=== PATIENT | male | born 1965 | race Caucasian/White ===

== ENCOUNTER 2021-06-06 11:48 | Inpatient (IN) | payer BC ==
[2021-06-06] MEDS ORDERED: DEXAMETHASONE SOD PHOSPHATE 10 MG/ML 1 ML VIAL IV STA (13:41)
--- NOTE | 2021-06-06 14:07 | ED ---
SOB HPI - General Chief Complaint: Shortness of Breath Stated Complaint: COVID+, SOB Time Seen by Provider: 06/06/21 13:32 Source: patient Mode of arrival: wheelchair Limitations: no limitations - History of Present Illness Initial Comments: Patient is a 56-year-old male presenting to the emergency Department with complaints of increasing shortness of breath over the past week. Patient tested positive for covid 9 days ago. He states last week his symptoms were minimal, occasional body aches, then this week his cough developed and he has been progr essively getting more short of breath. He denies history of asthma or COPD, he takes no medications. He is a nonsmoker. He did not receive the Covid vaccine. He states he had one day of a fever about 3 days ago, none since then. He denies any GI complaints such as nausea, vomiting, diarrhea. Denies any abdominal pain, no chest pain today just occasional tightness when he feels like coughing. He has no further complaints today. Upon arrival to the ER, is afebrile, tachycardia at 112, blood pressures 136/85, 82% on room air. - Related Data Home Medications Medication Instructions Recorded Confirmed Albuterol Inhaler [Ventolin Hfa 2 puff INHALATION RT-QID PRN 06/06/21 06/06/21 Inhaler] Albuterol Nebulized [Ventolin 2.5 mg INHALATION RT-TID PRN 06/06/21 06/06/21 Nebulized] Azithromycin [Zithromax Z-pack (6 See Taper PO DAILY 06/06/21 06/06/21 tabs)] predniSONE See Taper PO DAILY 06/06/21 06/06/21 Allergies Allergy/AdvReac Type Severity Reaction Status Date / Time No Known Allergies Allergy Verified 06/06/21 15:09 Review of Systems ROS Statement: Those systems with pertinent positive or pertinent negative responses have been documented in the HPI. ROS Other: All systems not noted in ROS Statement are negative. Past Medical History Additional Past Medical History / Comment(s): Covid 05/28 History of Any Multi-Drug Resistant Organisms: None Reported Past Surgical History: No Surgical Hx Reported Past Psychological History: No Psychological Hx Reported Smoking Status: Never smoker Past Alcohol Use History: Occasional Past Drug Use History: None Reported General Exam - General Exam Comments Initial Comments: GENERAL: Patient is well-developed and well-nourished. Patient is in moderate distress. HEAD: Atraumatic, normocephalic. EYES: Pupils equal round and reactive to light, extraocular movements intact, sclera anicteric, conjunctiva are normal. Eyelids were unremarkable. ENT: TMs normal, nares patent, oropharynx clear without exudates. Moist mucous membranes. NECK: Normal range of motion, supple without lymphadenopathy or JVD. LUNGS: Labored respirations, unable to finish a complete sentence without needing to breathe. Decreased sounds bilaterally, clear to auscultation bilaterally and equal. No wheezes rales or rhonchi. HEART: Tachycardia rate and rhythm without murmurs, rubs or gallops. ABDOMEN: Soft, nontender, normoactive bowel sounds. No guarding, no rebound. No masses appreciated. : Deferred MUSCULOSKELETAL: Normal extremities with adequate strength and normal range of motion, no pitting or edema. No clubbing or cyanosis. NEUROLOGICAL: Patient is alert and oriented x 3. Motor and sensory are also intact. Cranial nerves II through XII grossly intact. Symmetrical smile. Normal speech, normal gait. PSYCH: Normal mood, normal affect. SKIN: Warm, Dry, normal turgor, no rashes or lesions noted. Limitations: no limitations Course Vital Signs 06/06/21 06/06/21 12:15 14:55 Temperature 98.1 F 98.9 F Pulse Rate 112 H 98 Respiratory 24 24 Rate Blood Pressure 136/85 136/92 O2 Sat by Pulse 82 L 87 L Oximetry Medical Decision Making - Medical Decision Making Patient is a 56-year-old healthy male presenting for increased shortness of breath over the past week. He tested positive for COVID-19 days ago, his symptoms started 2 days prior. He has not received the Covid vaccine. He takes no medications. He arrived at 82% on room air. On exam, patient is very labored breathing, cannot complete a full sentence without deep breath. His labs show a normal white count, LDH, CRP and mildly elevated liver enzymes, all consistent with Covid infection. Chest x-ray shows multifocal patchy areas of bilateral infiltrate. He was placed on 5 L of nasal cannula, has been resting comfortably at about 87%. Patient will be admitted for Covid pneumonia, hypoxia. Patient except by Dr. Francis, with ID and pulmonary on consult. Patient is agreeable to this. Patient discussed with Dr. Spears. - Lab Data Result diagrams: 06/06/21 14:09 06/06/21 14:09 Lab Results 06/06/21 06/06/21 06/06/21 Range/Units 14:09 14:09 14:09 WBC 9.0 (3.8-10.6) k/uL RBC 4.66 (4.30-5.90) m/uL Hgb 15.2 (13.0-17.5) gm/dL Hct 44.0 (39.0-53.0) % MCV 94.4 (80.0-100.0) fL MCH 32.6 (25.0-35.0) pg MCHC 34.5 (31.0-37.0) g/dL RDW 12.6 (11.5-15.5) % Plt Count 232 (150-450) k/uL MPV 8.4 Neutrophils % 84 % Lymphocytes % 9 % Monocytes % 2 % Eosinophils % 0 % Basophils % 1 % Neutrophils # 7.6 (1.3-7.7) k/uL Lymphocytes # 0.8 L (1.0-4.8) k/uL Monocytes # 0.2 (0-1.0) k/uL Eosinophils # 0.0 (0-0.7) k/uL Basophils # 0.1 (0-0.2) k/uL PT 10.4 (9.0-12.0) sec INR 1.0 (<1.2) APTT 20.6 L (22.0-30.0) sec Sodium 141 (137-145) mmol/L Potassium 4.2 (3.5-5.1) mmol/L Chloride 108 H (98-107) mmol/L Carbon Dioxide 27 (22-30) mmol/L Anion Gap 6 mmol/L BUN 23 H (9-20) mg/dL Creatinine 0.66 (0.66-1.25) mg/dL Est GFR (CKD-EPI)AfAm >90 (>60 ml/min/1.73 sqM) Est GFR (CKD-EPI)NonAf >90 (>60 ml/min/1.73 sqM) Glucose 123 H (74-99) mg/dL Plasma Lactic Acid James (0.7-2.0) mmol/L Calcium 8.8 (8.4-10.2) mg/dL Magnesium 2.4 H (1.6-2.3) mg/dL Total Bilirubin 0.6 (0.2-1.3) mg/dL AST 110 H (17-59) U/L ALT 66 H (4-49) U/L Alkaline Phosphatase 66 (38-126) U/L Lactate Dehydrogenase 2094 H (313-618) U/L Troponin I (0.000-0.034) ng/mL C-Reactive Protein 15.7 H (<1.0) mg/dL NT-Pro-B Natriuret Pep pg/mL Total Protein 6.8 (6.3-8.2) g/dL Albumin 3.6 (3.5-5.0) g/dL 06/06/21 06/06/21 06/06/21 Range/Units 14:09 14:09 14:09 WBC (3.8-10.6) k/uL RBC (4.30-5.90) m/uL Hgb (13.0-17.5) gm/dL Hct (39.0-53.0) % MCV (80.0-100.0) fL MCH (25.0-35.0) pg MCHC (31.0-37.0) g/dL RDW (11.5-15.5) % Plt Count (150-450) k/uL MPV Neutrophils % % Lymphocytes % % Monocytes % % Eosinophils % % Basophils % % Neutrophils # (1.3-7.7) k/uL Lymphocytes # (1.0-4.8) k/uL Monocytes # (0-1.0) k/uL Eosinophils # (0-0.7) k/uL Basophils # (0-0.2) k/uL PT (9.0-12.0) sec INR (<1.2) APTT (22.0-30.0) sec Sodium (137-145) mmol/L Potassium (3.5-5.1) mmol/L Chloride (98-107) mmol/L Carbon Dioxide (22-30) mmol/L Anion Gap mmol/L BUN (9-20) mg/dL Creatinine (0.66-1.25) mg/dL Est GFR (CKD-EPI)AfAm (>60 ml/min/1.73 sqM) Est GFR (CKD-EPI)NonAf (>60 ml/min/1.73 sqM) Glucose (74-99) mg/dL Plasma Lactic Acid James 1.3 (0.7-2.0) mmol/L Calcium (8.4-10.2) mg/dL Magnesium (1.6-2.3) mg/dL Total Bilirubin (0.2-1.3) mg/dL AST (17-59) U/L ALT (4-49) U/L Alkaline Phosphatase (38-126) U/L Lactate Dehydrogenase (313-618) U/L Troponin I <0.012 (0.000-0.034) ng/mL C-Reactive Protein (<1.0) mg/dL NT-Pro-B Natriuret Pep 38 pg/mL Total Protein (6.3-8.2) g/dL Albumin (3.5-5.0) g/dL - EKG Data EKG Comments: Normal sinus rhythm, minimal voltage criteria for LVH, nonspecific T-wave abnormalities, no signs of acute ST segment elevation. Ventricular rate 98, MD interval 156, QT 338. Critical Care Time Critical Care Time: Yes Total Critical Care Time: 35 (Patient arrived to the ER at 82% on room air, and during questioning the patient, gaining history, he dropped to 77% on room air. Patient is positive for Covid, will be admitted for Covid pneumonia, hypoxia.) Disposition Clinical Impression: Pneumonia due to COVID-19 virus, Hypoxia Disposition: ADMITTED IP TO THIS HOSP Condition: Fair Decision Date: 06/06/21 Decision Time: 14:39
[2021-06-06 14:21] LABS: Basophils # (A) 0.1 k/uL (0-0.2); Basophils % (A) 1 %; Eosinophils % (A) 0 %; HGB 15.2 gm/dL (13.0-17.5); Lymphocytes # (A) 0.8 k/uL (1.0-4.8); Lymphocytes % (A) 9 %; MCH 32.6 pg (25.0-35.0); MCHC 34.5 g/dL (31.0-37.0); MCV 94.4 fL (80.0-100.0); Mean Platelet Volume 8.4; Monocytes # (A) 0.2 k/uL (0-1.0); Monocytes % (A) 2 %; Neutrophils # (A) 7.6 k/uL (1.3-7.7); Neutrophils % (A) 84 %; Platelet Count 232 k/uL (150-450); RBC 4.66 m/uL (4.30-5.90); RDW 12.6 % (11.5-15.5)
[2021-06-06 14:34] LABS: ALT 66 U/L (4-49); AST 110 U/L (17-59); African American GFR (CKD) >90 (>60 ml/min/1.73 sqM); Albumin 3.6 g/dL (3.5-5.0); Alkaline Phosphatase 66 U/L (38-126); Anion Gap 6 mmol/L; Blood Urea Nitrogen 23 mg/dL (9-20); Calcium 8.8 mg/dL (8.4-10.2); Carbon Dioxide 27 mmol/L (22-30); Chloride 108 mmol/L (98-107); Glucose 123 mg/dL (74-99); Magnesium 2.4 mg/dL (1.6-2.3); Non-African American GFR(CKD) >90 (>60 ml/min/1.73 sqM); Potassium 4.2 mmol/L (3.5-5.1); Sodium 141 mmol/L (137-145); Total Bilirubin 0.6 mg/dL (0.2-1.3); Total Protein 6.8 g/dL (6.3-8.2)
[2021-06-06] MEDS ORDERED: NALOXONE 0.4 MG/ML 1 ML VIAL IV PRN (14:36)
[2021-06-06] MEDS ORDERED: ACETAMINOPHEN TAB 325 MG TAB PO PRN (14:36)
[2021-06-06] MEDS ORDERED: IBUPROFEN 400 MG TAB PO PRN (14:36)
--- NOTE | 2021-06-06 14:38 | XR ---
EXAMINATION TYPE: XR chest 1V portable DATE OF EXAM: 06/06/2021 COMPARISON: NONE HISTORY: Shortness of breath TECHNIQUE: Single frontal view of the chest is obtained. FINDINGS: There are patchy bilateral areas of infiltrate correlate for pneumonia. Heart size is mild ly prominent. No pneumothorax. Tiny pleural effusions not excluded. IMPRESSION: Multifocal patchy areas of bilateral infiltrate correlate for pneumonia.
[2021-06-06 14:44] LABS: Prothrombin Time 10.4 sec (9.0-12.0)
[2021-06-06 14:45] LABS: Partial Thromboplastin Time 20.6 sec (22.0-30.0)
[2021-06-06 15:16] LABS: C Reactive Protein 15.7 mg/dL (<1.0); LDH 2094 U/L (313-618)
[2021-06-06 16:51] LABS: Glucose,Whole Blood 132 mg/dL (75-99)
--- NOTE | 2021-06-06 18:47 | P.CNPUL ---
History of Present Illness Consult date: 06/06/21 Reason for consult: dyspnea, hypoxemia, pneumonia, abnormal CXR/CT Chief complaint: COVID-19 pneumonia History of present illness: This is a 54-year-old white male patient of Dr. Hallman, who came into the emergency department on 06/06/2021 for evaluation of increasing shortness of breath. She apparently tested positive for COVID-19 9 days ago. His dyspnea has been progressive over the past week. Initially his symptoms were minimal with occasional body aches, then this week his cough developed, and he has been progressively getting more short of breath. He does not have any history of chronic lung disease. He takes no prescription medications, he is a non-smoker, patient has not received COVID-19 vaccine. Patient reports 1 day of fever 3 days ago, and has not had any recurrence since. No nausea vomiting or diarrhea, no abdominal pain. His pulse ox in the emergency department was low at 82% on room air, he is afebrile, slightly tachycardic. His blood pressure is stable at 136/85. Chest x-ray showed multifocal patchy areas of bilateral infiltrates. Lab findings showed white blood cell count of 9.0, hemoglobin of 15.2, platelet count is 232, INR is 1.0, sodium is 141, potassium is 4.2, chloride is 108, CO2 is 27, B1 is 23, creatinine 0.66, lactic acid was 1.3, AST was 110, ALT was 66, LDH was 2094, troponin was less than 0.012, CRP was 15.7. Patient was placed on 8 L of supplemental oxygen, his pulse ox is 88%. He was placed on IV Decadron 6 mg daily, and we were consulted for acute hypoxic rest or a failure related to COVID-19 pneumonia Review of Systems All systems: negative Constitutional: Reports fatigue, Reports weakness, Denies chills, Denies fever Eyes: denies blurred vision, denies pain Ears, nose, mouth and throat: Denies headache, Denies sore throat Cardiovascular: Denies chest pain, Denies shortness of breath Respiratory: Reports dyspnea, Denies cough Gastrointestinal: Denies abdominal pain, Denies diarrhea, Denies nausea, Denies vomiting Musculoskeletal: Denies myalgias Integumentary: Denies pruritus, Denies rash Neurological: Denies numbness, Denies weakness Psychiatric: Denies anxiety, Denies depression Endocrine: Denies fatigue, Denies weight change Past Medical History Additional Past Medical History / Comment(s): Covid 05/28 History of Any Multi-Drug Resistant Organisms: None Reported Past Surgical History: No Surgical Hx Reported Past Psychological History: No Psychological Hx Reported Smoking Status: Never smoker Past Alcohol Use History: Occasional Past Drug Use History: None Reported Medications and Allergies Home Medications Medication Instructions Recorded Confirmed Type Albuterol Inhaler [Ventolin Hfa 2 puff INHALATION RT-QID PRN 06/06/21 06/06/21 History Inhaler] Albuterol Nebulized [Ventolin 2.5 mg INHALATION RT-TID PRN 06/06/21 06/06/21 History Nebulized] Azithromycin [Zithromax Z-pack (6 See Taper PO DAILY 06/06/21 06/06/21 History tabs)] predniSONE See Taper PO DAILY 06/06/21 06/06/21 History Allergies Allergy/AdvReac Type Severity Reaction Status Date / Time No Known Allergies Allergy Verified 06/06/21 15:09 Physical Exam Vitals: Vital Signs Temp Pulse Pulse Resp BP BP Pulse Ox 06/06/21 17:13 105 H 06/06/21 17:10 98.9 F 105 H 144/84 06/06/21 16:25 91 20 133/88 86 L 06/06/21 16:00 28 H 88 L 06/06/21 14:55 98.9 F 98 24 136/92 87 L 06/06/21 13:40 24 06/06/21 12:15 98.1 F 112 H 24 136/85 82 L Intake and Output 06/06/21 06/06/21 06/06/21 06:59 14:59 22:59 Other: Voiding Method Toilet Weight 136.078 kg GENERAL EXAM: Alert, 56-year-old white male, on 8 L of oxygen and the pulse ox of 80%, resting in the hallway in the emergency department, comfortable in no apparent distress. HEAD: Normocephalic/atraumatic. EYES: Normal reaction of pupils, equal size. Conjunctiva pink, sclera white. NOSE: Clear with pink turbinates. THROAT: No erythema or exudates. NECK: No masses, no JVD, no thyroid enlargement, no adenopathy. CHEST: No chest wall deformity. Symmetrical expansion. LUNGS: Equal air entry with scattered crackles CVS: Regular rate and rhythm, normal S1 and S2, no gallops, no murmurs, no rubs ABDOMEN: Soft, nontender. No hepatosplenomegaly, normal bowel sounds, no guarding or rigidity. EXTREMITIES: No clubbing, no edema, no cyanosis, 2+ pulses and upper and lower extremities. MUSCULOSKELETAL: Muscle strength and tone normal. SPINE: No scoliosis or deformity SKIN: No rashes CENTRAL NERVOUS SYSTEM: Alert and oriented -3. No focal deficits, tone is normal in all 4 extremities. PSYCHIATRIC: Alert and oriented -3. Appropriate affect. Intact judgment and insight. Results - Laboratory Findings CBC and BMP: 06/06/21 14:09 06/06/21 14:09 PT/INR, D-dimer PT 10.4 sec (9.0-12.0) 06/06/21 14:09 INR 1.0 (<1.2) 06/06/21 14:09 Abnormal lab findings: Abnormal Labs 06/06/21 06/06/21 06/06/21 14:09 14:09 14:09 Lymphocytes # 0.8 L APTT 20.6 L Chloride 108 H BUN 23 H Glucose 123 H POC Glucose (mg/dL) Magnesium 2.4 H AST 110 H ALT 66 H Lactate Dehydrogenase 2094 H C-Reactive Protein 15.7 H 06/06/21 16:50 Lymphocytes # APTT Chloride BUN Glucose POC Glucose (mg/dL) 132 H Magnesium AST ALT Lactate Dehydrogenase C-Reactive Protein - Diagnostic Findings Chest x-ray: report reviewed, image reviewed Additional studies: EKG was reviewed Assessment and Plan Plan: Assessment: #1. Acute hypoxic respiratory failure related to acute COVID-19 pneumonia, tested +9 days prior to presentation, patient is outside of the window for Remdesivir treatment. Non-vaccinated for COVID-19 #2. Never smoker #3. Increase fluid is related to viral pneumonia Plan: Continue Decadron 6 mg daily Outside of the window for Remdesivir Lovenox 40 mg daily Will add vitamins Obtain follow-up inflammatory markers and d-dimer We'll continue to follow and monitor for worsening dyspnea and hypoxia I performed a history & physical examination of the patient and discussed their management with my nurse practitioner, Sherry Jimenez. I reviewed the nurse practitioner's note and agree with the documented findings and plan of care. Lung sounds are positive for diffuse crackles throughout the lung smart. The findings and the impression was discussed with the patient. I attest to the documentation by the nurse practitioner. Time with Patient: Greater than 30
[2021-06-06] MEDS: ENOXAPARIN 40 MG/0.4 ML SYRINGE SQ SCH (18:51)
[2021-06-06 20:33] LABS: Glucose,Whole Blood 128 mg/dL (75-99)
[2021-06-06] MEDS: ASCORBIC ACID 500 MG TAB PO SCH (20:55)
[2021-06-06] MEDS: CHOLECALCIFEROL 25 MCG (1000 IU) TABLET PO SCH (20:55)
--- NOTE | 2021-06-06 21:28 | P.CONS ---
History of Present Illness - Reason for Consult Consult date: 06/06/21 covid 19 pneumonia Requesting physician: Yanick Francis - Chief Complaint shortness of breath and cough x days - History of Present Illness History of present illness : Patient is a 56-year male presenting to the ER this morning for evaluation of increasing shortness of breath in this patient who tested positive for COVID-19 on 05/27/2021 initially the patient sy mptoms were mild and mostly URI patient has been treated with the inhaler followed by steroids however the patient started having a increasing shortness of breath that has been progressively getting worse the patient also started having a cough which has been moderate intensity mostly dry in nature patient did have some nausea but no vomiting did have some diarrhea initially with the symptoms the patient presented to the [facility] ER on arrival to the ER patient was afebrile patient was hypoxic with O2 sats of 82% on room air patient did have a normal white count with lymphopenia D-dimer was elevated 1.12 kidney function was normal liver enzymes are elevated CRP is 15.7 albumin was normal patient did have a chest x-ray multifocal patchy areas of bilateral infiltrate correlate for pneumonia patient was admitted to the hospital infectious disease was consulted for further management Review of system: CONSTITUTIONAL: Positive for weakness denies high-grade fever. EYES: No complaint. ENT: No complaint. RESPIRATORY: As per history of present illness. CARDIOVASCULAR: No complaint. GENITOURINARY: No complaint. GASTROINTESTINAL: No complaint. MUSCULOSKELETAL: No complaint. INTEGUMENTARY: No complaint. PSYCHOLOGIC: No complaint. ENDOCRINE: No complaint. NEUROLOGIC: No complaint. Past medical history : Reviewed, documented below Past surgical history : Reviewed, documented below Social history: Reviewed, documented below Medications: Reviewed, as documented below EXAMINATION: Vital sigans= Reviewed and documented below GENERAL DESCRIPTION: Middle-aged male lying in bed, no distress. No tachypnea or accessory muscle of respiration use. HEENT: Shows Pallor , no scleral icterus. Oral mucous membrane is dry. NECK: Trachea central, no thyromegaly. LUNGS: Unlabored breathing. Coarse breath sounds bilaterally. No wheeze or crackle. HEART: S1, S2, regular rate and rhythm. ABDOMEN: Soft, no tenderness , guarding or rigidity EXTREMITIES: No edema of feet. SKIN: No rash, no masses palpable. NEUROLOGICAL: The patient is awake, alert, oriented x3, mood and affect normal. LABS AND RADIOLOGY: Reviewed results see below Assessment : Patient is a 56-year male presented to hospital with increasing shortness of breath and cough and this patient has been diagnosed with a COVID-19 on 05/27/2021, patient is currently out of the therapeutic window for remdesivir per [facility] institutional policy and the treatment will be mostly supportive in this patient currently with the no evidence of any secondary bacterial pneumonia Plan: 1-patient has been started on dexamethasone Lovenox and ascorbic acid 2-we will add zinc 3-droplet isolation and respiratory support 4-no need for systemic antibiotic therapy We will follow on clinical condition and cultures to further adjust medication if needed Thank you for this consultation we will follow the patient along with you Past Medical History Past Medical History: Cancer Additional Past Medical History / Comment(s): Covid 05/28 History of Any Multi-Drug Resistant Organisms: None Reported Past Surgical History: No Surgical Hx Reported Additional Past Surgical History / Comment(s): Skin Cancer Past Anesthesia/Blood Transfusion Reactions: No Reported Reaction Past Psychological History: No Psychological Hx Reported Smoking Status: Never smoker Past Alcohol Use History: Occasional Past Drug Use History: None Reported - Past Family History Father History Unknown: Yes Family Medical History: Myocardial Infarction (ID) Medications and Allergies Home Medications Medication Instructions Recorded Confirmed Type Albuterol Inhaler [Ventolin Hfa 2 puff INHALATION RT-QID PRN 06/06/21 06/06/21 History Inhaler] Albuterol Nebulized [Ventolin 2.5 mg INHALATION RT-TID PRN 06/06/21 06/06/21 History Nebulized] Azithromycin [Zithromax Z-pack (6 See Taper PO DAILY 06/06/21 06/06/21 History tabs)] predniSONE See Taper PO DAILY 06/06/21 06/06/21 History Allergies Allergy/AdvReac Type Severity Reaction Status Date / Time No Known Allergies Allergy Verified 06/06/21 15:09 Physical Exam Vitals: Vital Signs Temp Pulse Pulse Resp BP BP Pulse Ox 06/06/21 20:00 98.2 F 101 H 26 H 155/91 88 L 06/06/21 17:13 105 H 06/06/21 17:10 98.9 F 105 H 144/84 06/06/21 16:25 91 20 133/88 86 L 06/06/21 16:00 28 H 88 L 06/06/21 14:55 98.9 F 98 24 136/92 87 L 06/06/21 13:40 24 06/06/21 12:15 98.1 F 112 H 24 136/85 82 L Intake and Output 06/06/21 06/06/21 06/06/21 06:59 14:59 22:59 Intake Total 130 Balance 130 Intake: IV 10 Invasive Line 1 10 Oral 120 Other: Voiding Method Toilet Weight 136.078 kg 136.078 kg Results CBC & Chem 7: 06/06/21 14:09 06/06/21 14:09 Labs: Abnormal Lab Results - Last 24 Hours (Table) 06/06/21 06/06/21 06/06/21 Range/Units 14:09 14:09 14:09 Lymphocytes # 0.8 L (1.0-4.8) k/uL APTT 20.6 L (22.0-30.0) sec D-Dimer (<0.60) mg/L FEU Chloride 108 H (98-107) mmol/L BUN 23 H (9-20) mg/dL Glucose 123 H (74-99) mg/dL POC Glucose (mg/dL) (75-99) mg/dL Magnesium 2.4 H (1.6-2.3) mg/dL AST 110 H (17-59) U/L ALT 66 H (4-49) U/L Lactate Dehydrogenase 2094 H (313-618) U/L C-Reactive Protein 15.7 H (<1.0) mg/dL 06/06/21 06/06/21 06/06/21 Range/Units 16:50 19:51 20:32 Lymphocytes # (1.0-4.8) k/uL APTT (22.0-30.0) sec D-Dimer 1.12 H (<0.60) mg/L FEU Chloride (98-107) mmol/L BUN (9-20) mg/dL Glucose (74-99) mg/dL POC Glucose (mg/dL) 132 H 128 H (75-99) mg/dL Magnesium (1.6-2.3) mg/dL AST (17-59) U/L ALT (4-49) U/L Lactate Dehydrogenase (313-618) U/L C-Reactive Protein (<1.0) mg/dL
--- NOTE | 2021-06-06 23:08 | P.HPIM ---
History of Present Illness H&P Date: 06/06/21 Chief Complaint: Shortness of breath History of presenting complaint: This is a pleasant 56-year-old patient who follows with Dr. Hallman. Normal. Good health. Patient's thyroid of not feeling well about 9 days ago. And tested positive for COVID 19. Patient has not taken his COVID-19 vaccination. Initially symptoms are nonspecific then progressed to develop cough shortness of breath. Patient has been maintained his taste and smell. No diarrhea. Very slight body ache. No headache. Decreasing appetite. Patient became more and more short of breath. Decided to come to the ER. Found of a pulse ox of 82%. Admitted. Review of systems: GEN.: Tired EYES: None HEENT: None NECK: None RESPIRATORY: As above CARDIOVASCULAR: None GASTROINTESTINAL: None GENITOURINARY: None MUSCULOSKELETAL: None LYMPHATICS: None HEMATOLOGICAL: None PSYCHIATRY: None NEUROLOGICAL: None Past medical history to include: Unremarkable Social history: . 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 Does not smoke. Alcohol occasionally. Family history: Myocardial infarction Physical examination: VITAL SIGNS: 98.1, 112, 24, 136/85, 82% on room air on presentation GENERAL: BMI 37.5, reclining in bed, tired, short of breath. EYES: Pupils equal. Conjunctiva normal. HEENT: External appearance of nose and ears normal, oral cavity grossly normal. NECK: JVD not raised; masses not palpable. HEART: First and second heart sounds are normal; no edema. LUNGS: Respiratory rate increased, basal crackles. ABDOMEN: Soft, nontender, liver spleen not palpable, no masses palpable. PSYCH: [Alert and oriented x3; mood and affect tired. NEUROLOGICAL: Cranial nerves grossly intact; no facial asymmetry, power and sensation grossly intact. LYMPHATICS: No lymph nodes palpable in the axilla and neck INVESTIGATIONS, reviewed in the clinical context: WBC 9 hemoglobin 15.2 platelets 232 d-dimer 1.12 potassium 4.2 sodium 141 BUN 23 creatinine 0.66 AST 110 ALT 66 LDH 2094 CRP 15.7 Chest x-ray film personally reviewed by me-bilateral infiltrates EKG tracing personally reviewed by me-normal sinus rhythm, nonspecific T-wave changes Assessment and plan: -Acute COVID 19 pneumonitis, in unvaccinated patient Dexamethasone 6 mg daily, subcu Lovenox, vitamin C vitamin D zinc. Per [facility] policy patient is out of the window for Remdesivir. Consultation to pulmonary and ID. -Acute hypoxic respiratory failure from COVID 19 pneumonitis. On 5 L of nasal cannula -Obesity BMI 37.15 Weight loss measures -Mildly elevated LFTs. Check liver ultrasound for hepatic steatosis Dexamethasone 6 mg, subcu Lovenox, 5 L of oxygen,. Patient instructed on incentive spirometry. Care was discussed with the patient. Questions answered. Given the complexity and severity of patient's condition expect the patient to be in the hospital at least for 2 overnights Past Medical History Past Medical History: Cancer Additional Past Medical History / Comment(s): Covid 05/28 History of Any Multi-Drug Resistant Organisms: None Reported Past Surgical History: No Surgical Hx Reported Additional Past Surgical History / Comment(s): Skin Cancer Past Anesthesia/Blood Transfusion Reactions: No Reported Reaction Past Psychological History: No Psychological Hx Reported Smoking Status: Never smoker Past Alcohol Use History: Occasional Past Drug Use History: None Reported - Past Family History Father History Unknown: Yes Family Medical History: Myocardial Infarction (ND) Medications and Allergies Home Medications Medication Instructions Recorded Confirmed Type Albuterol Inhaler [Ventolin Hfa 2 puff INHALATION RT-QID PRN 06/06/21 06/06/21 History Inhaler] Albuterol Nebulized [Ventolin 2.5 mg INHALATION RT-TID PRN 06/06/21 06/06/21 History Nebulized] Azithromycin [Zithromax Z-pack (6 See Taper PO DAILY 06/06/21 06/06/21 History tabs)] predniSONE See Taper PO DAILY 06/06/21 06/06/21 History Allergies Allergy/AdvReac Type Severity Reaction Status Date / Time No Known Allergies Allergy Verified 06/06/21 15:09 Physical Exam Vitals: Vital Signs Temp Pulse Pulse Resp BP BP Pulse Ox 06/06/21 22:39 90 L 06/06/21 20:00 98.2 F 101 H 26 H 155/91 88 L 06/06/21 17:13 105 H 06/06/21 17:10 98.9 F 105 H 144/84 06/06/21 16:25 91 20 133/88 86 L 06/06/21 16:00 28 H 88 L 06/06/21 14:55 98.9 F 98 24 136/92 87 L 06/06/21 13:40 24 06/06/21 12:15 98.1 F 112 H 24 136/85 82 L Intake and Output 06/06/21 06/06/21 06/06/21 06:59 14:59 22:59 Intake Total 130 Balance 130 Intake: IV 10 Invasive Line 1 10 Oral 120 Other: Voiding Method Toilet Weight 136.078 kg 136.078 kg Results CBC & Chem 7: 06/06/21 14:09 06/06/21 14:09 Labs: Abnormal Lab Results - Last 24 Hours (Table) 06/06/21 06/06/21 06/06/21 Range/Units 14:09 14:09 14:09 Lymphocytes # 0.8 L (1.0-4.8) k/uL APTT 20.6 L (22.0-30.0) sec D-Dimer (<0.60) mg/L FEU Chloride 108 H (98-107) mmol/L BUN 23 H (9-20) mg/dL Glucose 123 H (74-99) mg/dL POC Glucose (mg/dL) (75-99) mg/dL Magnesium 2.4 H (1.6-2.3) mg/dL AST 110 H (17-59) U/L ALT 66 H (4-49) U/L Lactate Dehydrogenase 2094 H (313-618) U/L C-Reactive Protein 15.7 H (<1.0) mg/dL 06/06/21 06/06/21 06/06/21 Range/Units 16:50 19:51 20:32 Lymphocytes # (1.0-4.8) k/uL APTT (22.0-30.0) sec D-Dimer 1.12 H (<0.60) mg/L FEU Chloride (98-107) mmol/L BUN (9-20) mg/dL Glucose (74-99) mg/dL POC Glucose (mg/dL) 132 H 128 H (75-99) mg/dL Magnesium (1.6-2.3) mg/dL AST (17-59) U/L ALT (4-49) U/L Lactate Dehydrogenase (313-618) U/L C-Reactive Protein (<1.0) mg/dL Thrombosis Risk Factor Assmnt - Choose All That Apply Any of the Below Risk Factors Present?: Yes Each Factor Represents 1 point: Age 41-60 years, Obesity (BMI >25), Serious lung disease incl. pneumonia (< 1month) Other Risk Factors: No Thrombosis Risk Factor Assessment Total Risk Factor Score: 3 Thrombosis Risk Factor Assessment Level: Moderate Risk
[2021-06-07 06:31] LABS: Glucose,Whole Blood 111 mg/dL (75-99)
[2021-06-07] MEDS: DEXAMETHASONE SOD PHOSPHATE 10 MG/ML 1 ML VIAL IV SCH (08:10)
[2021-06-07] MEDS: ZINC SULFATE 220 MG CAP PO SCH (08:11)
[2021-06-07] MEDS: CHOLECALCIFEROL 25 MCG (1000 IU) TABLET PO SCH (08:11)
[2021-06-07] MEDS: ENOXAPARIN 40 MG/0.4 ML SYRINGE SQ SCH (08:11)
[2021-06-07] MEDS: ASCORBIC ACID 500 MG TAB PO SCH (08:11)
[2021-06-07 11:25] LABS: Glucose,Whole Blood 305 mg/dL (75-99)
--- NOTE | 2021-06-07 12:09 | P.PN ---
Subjective Progress Note Date: 06/07/21 Principal diagnosis: COVID 19 pneumonia This is a 54-year-old white male patient of Dr. Hallman, who came into the emergency department on 06/06/2021 for evaluation of increasing shortness of breath. She apparently tested positive for COVID-19 9 days ago. His dyspnea has been progressive over the past week. Initially his symptoms were minimal with occasional body aches, then this week his cough developed, and he has been progressively getting more short of breath. He does not have any history of chronic lung disease. He takes no prescription medications, he is a non-smoker, patient has not received COVID-19 vaccine. Patient reports 1 day of fever 3 days ago, and has not had any recurrence since. No nausea vomiting or diarrhea, no abdominal pain. His pulse ox in the emergency department was low at 82% on room air, he is afebrile, slightly tachycardic. His blood pressure is stable at 136/85. Chest x-ray showed multifocal patchy areas of bilateral infiltrates. Lab findings showed white blood cell count of 9.0, hemoglobin of 15.2, platelet count is 232, INR is 1.0, sodium is 141, potassium is 4.2, chloride is 108, CO2 is 27, B1 is 23, creatinine 0.66, lactic acid was 1.3, AST was 110, ALT was 66, LDH was 2094, troponin was less than 0.012, CRP was 15.7. Patient was placed on 8 L of supplemental oxygen, his pulse ox is 88%. He was placed on IV Decadron 6 mg daily, and we were consulted for acute hypoxic rest or a failure related to COVID-19 pneumonia On Today's evaluation on 06/07/2021 patient seen in follow-up on selective care unit. Appears fatigued on today's exam, but does not appear to be in any acute distress. However his oxygen requirements have progressed since yesterday. And patient is currently on 15 L high flow and his pulse ox 88%. He is afebrile, signs are stable, he was started on steroids in the form of Decadron yesterday, prophylactic dose Lovenox 40 mg daily. he was outside of the window for Remdesivir. Chest x-ray showed multifocal patchy areas of bilateral infiltrates on admission, no repeat chest x-ray. Today's labs have been reviewed showing d- dimer 1.49, rest of the labs are pending for today. Objective - Vital Signs Vital signs: Vital Signs Temp 98.1 F 06/07/21 08:05 Pulse 109 H 06/07/21 08:05 Resp 26 H 06/07/21 08:05 BP 144/83 06/07/21 08:05 Pulse Ox 86 L 06/07/21 08:05 Intake & Output 06/06/21 06/07/21 06/07/21 18:59 06:59 18:59 Intake Total 120 110 236 Balance 120 110 236 Weight 136.078 kg 121 kg Intake: IV 10 Invasive Line 1 10 Oral 120 100 236 Other: Voiding Method Toilet Toilet # Voids 1 - Exam GENERAL EXAM: Alert, 56-year-old white male, appears tired, fatigued on 15 L of oxygen and the pulse ox of 86%, resting in the hallway in the emergency department, comfortable in no apparent distress. HEAD: Normocephalic/atraumatic. EYES: Normal reaction of pupils, equal size. Conjunctiva pink, sclera white. NOSE: Clear with pink turbinates. THROAT: No erythema or exudates. NECK: No masses, no JVD, no thyroid enlargement, no adenopathy. CHEST: No chest wall deformity. Symmetrical expansion. LUNGS: Equal air entry with scattered crackles CVS: Regular rate and rhythm, normal S1 and S2, no gallops, no murmurs, no rubs ABDOMEN: Soft, nontender. No hepatosplenomegaly, normal bowel sounds, no guarding or rigidity. EXTREMITIES: No clubbing, no edema, no cyanosis, 2+ pulses and upper and lower extremities. MUSCULOSKELETAL: Muscle strength and tone normal. SPINE: No scoliosis or deformity SKIN: No rashes CENTRAL NERVOUS SYSTEM: Alert and oriented -3. No focal deficits, tone is normal in all 4 extremities. PSYCHIATRIC: Alert and oriented -3. Appropriate affect. Intact judgment and insight. - Labs CBC & Chem 7: 06/06/21 14:09 06/06/21 14:09 Labs: Abnormal Lab Results - Last 24 Hours (Table) 06/06/21 06/06/21 06/06/21 Range/Units 14:09 14:09 14:09 Lymphocytes # 0.8 L (1.0-4.8) k/uL APTT 20.6 L (22.0-30.0) sec D-Dimer (<0.60) mg/L FEU Chloride 108 H (98-107) mmol/L BUN 23 H (9-20) mg/dL Glucose 123 H (74-99) mg/dL POC Glucose (mg/dL) (75-99) mg/dL Magnesium 2.4 H (1.6-2.3) mg/dL AST 110 H (17-59) U/L ALT 66 H (4-49) U/L Lactate Dehydrogenase 2094 H (313-618) U/L C-Reactive Protein 15.7 H (<1.0) mg/dL Procalcitonin (0.02-0.09) ng/mL 06/06/21 06/06/21 06/06/21 Range/Units 14:09 16:50 19:51 Lymphocytes # (1.0-4.8) k/uL APTT (22.0-30.0) sec D-Dimer 1.12 H (<0.60) mg/L FEU Chloride (98-107) mmol/L BUN (9-20) mg/dL Glucose (74-99) mg/dL POC Glucose (mg/dL) 132 H (75-99) mg/dL Magnesium (1.6-2.3) mg/dL AST (17-59) U/L ALT (4-49) U/L Lactate Dehydrogenase (313-618) U/L C-Reactive Protein (<1.0) mg/dL Procalcitonin 0.74 H (0.02-0.09) ng/mL 06/06/21 06/07/21 06/07/21 Range/Units 20:32 06:30 08:06 Lymphocytes # (1.0-4.8) k/uL APTT (22.0-30.0) sec D-Dimer 1.49 H (<0.60) mg/L FEU Chloride (98-107) mmol/L BUN (9-20) mg/dL Glucose (74-99) mg/dL POC Glucose (mg/dL) 128 H 111 H (75-99) mg/dL Magnesium (1.6-2.3) mg/dL AST (17-59) U/L ALT (4-49) U/L Lactate Dehydrogenase (313-618) U/L C-Reactive Protein (<1.0) mg/dL Procalcitonin (0.02-0.09) ng/mL 06/07/21 06/07/21 Range/Units 08:06 11:23 Lymphocytes # (1.0-4.8) k/uL APTT (22.0-30.0) sec D-Dimer (<0.60) mg/L FEU Chloride (98-107) mmol/L BUN (9-20) mg/dL Glucose (74-99) mg/dL POC Glucose (mg/dL) 305 H (75-99) mg/dL Magnesium (1.6-2.3) mg/dL AST (17-59) U/L ALT (4-49) U/L Lactate Dehydrogenase (313-618) U/L C-Reactive Protein 7.3 H (<1.0) mg/dL Procalcitonin (0.02-0.09) ng/mL Assessment and Plan Plan: Assessment: #1. Acute hypoxic respiratory failure related to acute COVID-19 pneumonia, tested +9 days prior to presentation, patient is outside of the window for Remdesivir treatment. Non-vaccinated for COVID-19 #2. Never smoker #3. Increase fluid is related to viral pneumonia Plan: Titrate Fio2 to keep O2 sat 88-90% Start Bariticinib- Continue Decadron 6 mg daily Outside of the window for Remdesivir Lovenox 40 mg daily will add vitamins Obtain follow-up inflammatory markers and d-dimer We'll continue to follow and monitor for worsening dyspnea and hypoxia I performed a history & physical examination of the patient and discussed their management with my nurse practitioner, Sherry Jimenez. I reviewed the nurse practitioner's note and agree with the documented findings and plan of care. Lung sounds are positive for diffuse crackles throughout the lung smart. The findings and the impression was discussed with the patient. I attest to the documentation by the nurse practitioner. Time with Patient: Less than 30
[2021-06-07] MEDS ORDERED: ENOXAPARIN 80 MG/0.8 ML SYRINGE SQ STA (12:32)
[2021-06-07 12:38] LABS: Glucose,Whole Blood 123 mg/dL (75-99)
[2021-06-07] MEDS: BARICITINIB 2 MG TABLET PO SCH (12:54)
--- NOTE | 2021-06-07 15:48 | PN ---
PROGRESS NOTE DATE OF SERVICE: 06/07/2021 REASON FOR FOLLOWUP: COVID-19 pneumonia. INTERVAL HISTORY: The patient is afebrile. The patient is breathing slightly comfortably; however, still requiring high-flow oxygen. The patient denies having any chest pain or any worsening cough. No vomiting. No abdominal pain or diarrhea. PHYSICAL EXAMINATION: Blood pressure 140/88 with a pulse of 89, temperature 97.7. He is 88% on 15 L high-flow oxygen. GENERAL DESCRIPTION: General description is a middle-aged male up in the chair in no distress. RESPIRATORY SYSTEM: Unlabored breathing. Coarse breath sounds bilaterally. No wheeze. HEART: S1, S2. Regular rate and rhythm. ABDOMEN: Soft. No tenderness. LABS: D-dimer is 1.49. CRP is 7.3. DIAGNOSTIC IMPRESSION AND PLAN: Patient with acute COVID-19 pneumonia in this patient considered to be out of the therapeutic window for remdesivir per [facility] policy. Patient is currently covered with Lovenox, dexamethasone. Baricitinib has been added. To continue along with respiratory support and monitor his clinical course closely. MMODL / IJN: [id number] /
--- NOTE | 2021-06-07 16:38 | P.PN ---
Progress Note - Text Progress Note Date: 06/07/21 Chief Complaint: Shortness of breath History of presenting complaint: This is a pleasant 56-year-old patient who follows with Dr. Hallman. Normal. Good health. Patient's thyroid of not feeling well about 9 days ago. And tested positive for COVID 19. Patient has not taken his COVID-19 vaccination. Initially symptoms are nonspecific then progressed to develop cough shortness of breath. Patient has been maintained his taste and smell. No diarrhea. Very slight body ache. No headache. Decreasing appetite. Patient became more and more short of breath. Decided to come to the ER. Found of a pulse ox of 82%. Admitted. Admitted with acute COVID 19 pneumonitis, acute hypoxic respiratory failure. Started on IV dexamethasone. June 07: More short of breath. Sitting up in a chair. On high flow cannula and started on Airvo. Eating some. Some cough. Tired. Started on Baricitinib by pulmonary today Review of systems: Was done for constitutional, cardiovascular, GI, pulmonary. relevant finding as above Active Medications Acetaminophen (Acetaminophen Tab 325 Mg Tab) 650 mg PO Q6HR PRN PRN Reason: Mild Pain or Fever > 100.5 Ascorbic Acid (Ascorbic Acid 500 Mg Tab) 1,000 mg PO DAILY [facility] Last Admin: 06/07/21 08:11 Dose: 1,000 mg Documented by: Baricitinib (Baricitinib 2 Mg Tablet) 4 mg PO DAILY@1300 [facility] Stop: 06/20/21 13:01 Last Admin: 06/07/21 12:54 Dose: 4 mg Documented by: Cholecalciferol (Cholecalciferol 25 Mcg (1000 Iu) Tablet) 100 mcg PO DAILY [facility] Last Admin: 06/07/21 08:11 Dose: 100 mcg Documented by: Dexamethasone Sodium Phosphate (Dexamethasone Sod Phosphate 10 Mg/Ml 1 Ml Vial) 6 mg IV DAILY [facility] Last Admin: 06/07/21 08:10 Dose: 6 mg Documented by: Enoxaparin Sodium (Enoxaparin 120 Mg/0.8 Ml Syringe) 120 mg SQ Q12HR [facility] Ibuprofen (Ibuprofen 400 Mg Tab) 400 mg PO Q6HR PRN PRN Reason: Mild Pain or Fever > 100.5 Naloxone HCl (Naloxone 0.4 Mg/Ml 1 Ml Vial) 0.2 mg IV Q2M PRN PRN Reason: Opioid Reversal Zinc Sulfate (Zinc Sulfate 220 Mg Cap) 220 mg PO DAILY [facility] Last Admin: 06/07/21 08:11 Dose: 220 mg Documented by: Past medical history to include: Unremarkable Social history: . 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 Does not smoke. Alcohol occasionally. Family history: Myocardial infarction Physical examination: VITAL SIGNS: 97.7, 89, 24, 140/88, 88% on 15 L GENERAL: Sitting up in a chair, short of breath. EYES: Pupils equal. Conjunctiva normal. NECK: JVD not raised; masses not palpable. HEART: First and second heart sounds are normal; no edema. LUNGS: Respiratory rate increased, basal crackles. ABDOMEN: Soft, nontender, liver spleen not palpable, no masses palpable. PSYCH: [Alert and oriented x3; mood and affect tired. INVESTIGATIONS, reviewed in the clinical context: June 07: D-dimer 1.49 CRP 7.3 WBC 9 hemoglobin 15.2 platelets 232 d-dimer 1.12 potassium 4.2 sodium 141 BUN 23 creatinine 0.66 AST 110 ALT 66 LDH 2094 CRP 15.7 Chest x-ray film personally reviewed by me-bilateral infiltrates EKG tracing personally reviewed by me-normal sinus rhythm, nonspecific T-wave changes Assessment and plan: -Acute COVID 19 pneumonitis, in unvaccinated patient: Not improving Dexamethasone 6 mg daily, subcu Lovenox, vitamin C vitamin D zinc. Per [facility] policy patient is out of the window for Remdesivir. Started on Baricitinib -Acute hypoxic respiratory failure from COVID 19 pneumonitis.: Worsening On 15 L of nasal cannula -Obesity BMI 37.15 Weight loss measures -Hyperglycemia secondary to steroids -Mildly elevated LFTs. Check liver ultrasound for hepatic steatosis Dexamethasone 6 mg, subcu Lovenox, 15 L of oxygen,. Baricitinib Care was discussed with the patient.
[2021-06-07 16:54] LABS: Glucose,Whole Blood 114 mg/dL (75-99)
[2021-06-07 20:29] LABS: Glucose,Whole Blood 121 mg/dL (75-99)
[2021-06-07] MEDS: ENOXAPARIN 120 MG/0.8 ML SYRINGE SQ SCH (20:42)
[2021-06-08 06:13] LABS: Glucose,Whole Blood 181 mg/dL (75-99)
[2021-06-08] MEDS: INSULIN ASPART (NovoLOG) 100 UNIT/ML VIAL SQ SCH ×4 (06:45→20:24)
--- NOTE | 2021-06-08 08:22 | US ---
EXAMINATION TYPE: US abdomen limited DATE OF EXAM: 06/08/2021 COMPARISON: None. CLINICAL HISTORY: Elevated LFT. Covid pneumonia. EXAM MEASUREMENTS: Liver Length: 19.1 cm Gallbladder Wall: 0.3 cm CBD: 0.7 cm Right Kidney: 10.3 x 5.2 x 4.8 cm Limited due to bowel gas and body habitus. Pancreas: Obscured by bowel gas Liver: Echogenic in appearance. Enlarged in size. Gallbladder: wnl as seen, LLD images not taken due to patient unable to turn because of breathing Evidence for sonographic Jones's sign: neg CBD: wnl Right Kidney: No hydronephrosis or masses seen Pancreas suboptimally seen on images saved. Suboptimal evaluation of the liver. Visualized liver is h eterogeneously hyperechoic without intrahepatic ductal dilatation. Evaluation for focal masses subopt imal due to the heterogeneity. No surrounding ascites. No right-sided hydronephrosis. Gallbladder poo rly distended without intraluminal mobile shadowing gallstones. IMPRESSION: Suboptimal study. Visualized liver is heterogeneously hyperechoic consistent with diffuse fatty infiltration and/or underlying hepatocellular disease.
[2021-06-08] MEDS: ENOXAPARIN 120 MG/0.8 ML SYRINGE SQ SCH (08:24)
[2021-06-08] MEDS: ASCORBIC ACID 500 MG TAB PO SCH (08:25)
[2021-06-08] MEDS: ZINC SULFATE 220 MG CAP PO SCH (08:25)
[2021-06-08] MEDS: CHOLECALCIFEROL 25 MCG (1000 IU) TABLET PO SCH (08:25)
[2021-06-08] MEDS: DEXAMETHASONE SOD PHOSPHATE 10 MG/ML 1 ML VIAL IV SCH (08:26)
--- NOTE | 2021-06-08 11:36 | P.PN ---
Subjective Progress Note Date: 06/08/21 Principal diagnosis: COVID 19 pneumonia This is a 54-year-old white male patient of Dr. Hallman, who came into the emergency department on 06/06/2021 for evaluation of increasing shortness of breath. She apparently tested positive for COVID-19 9 days ago. His dyspnea has been progressive over the past week. Initially his symptoms were minimal with occasional body aches, then this week his cough developed, and he has been progressively getting more short of breath. He does not have any history of chronic lung disease. He takes no prescription medications, he is a non-smoker, patient has not received COVID-19 vaccine. Patient reports 1 day of fever 3 days ago, and has not had any recurrence since. No nausea vomiting or diarrhea, no abdominal pain. His pulse ox in the emergency department was low at 82% on room air, he is afebrile, slightly tachycardic. His blood pressure is stable at 136/85. Chest x-ray showed multifocal patchy areas of bilateral infiltrates. Lab findings showed white blood cell count of 9.0, hemoglobin of 15.2, platelet count is 232, INR is 1.0, sodium is 141, potassium is 4.2, chloride is 108, CO2 is 27, B1 is 23, creatinine 0.66, lactic acid was 1.3, AST was 110, ALT was 66, LDH was 2094, troponin was less than 0.012, CRP was 15.7. Patient was placed on 8 L of supplemental oxygen, his pulse ox is 88%. He was placed on IV Decadron 6 mg daily, and we were consulted for acute hypoxic rest or a failure related to COVID-19 pneumonia On Today's evaluation on 06/07/2021 patient seen in follow-up on selective care unit. Appears fatigued on today's exam, but does not appear to be in any acute distress. However his oxygen requirements have progressed since yesterday. And patient is currently on 15 L high flow and his pulse ox 88%. He is afebrile, signs are stable, he was started on steroids in the form of Decadron yesterday, prophylactic dose Lovenox 40 mg daily. he was outside of the window for Remdesivir. Chest x-ray showed multifocal patchy areas of bilateral infiltrates on admission, no repeat chest x-ray. Today's labs have been reviewed showing d- dimer 1.49, rest of the labs are pending for today. On 06/08/2021 patient seen in follow-up on selective care unit, he is currently on irritable at 40 L and FiO2 of 60%, with pulse ox of 91-92%. Looks tired, but appears to be in no acute distress, patient is afebrile, he is very dyspneic with any exertion, patient does get up to the bathroom does not want to use bedside urinal. He was instructed to call for help to ambulate. He continues on Bariticinib, today is day 2 of treatment. In addition he is on Decadron 6 mg daily, and his Lovenox is 40 mg twice daily. Today's labs are pending for today, yesterday's d-dimer was 1.49, his LDH was 2094, CRP was 7.3 on yesterday's labs. His LFTs were elevated, an ultrasound of the abdomen was completed showing diffuse fatty infiltration of the liver. Objective - Vital Signs Vital signs: Vital Signs Temp 98.2 F 06/08/21 08:21 Pulse 105 H 06/08/21 08:21 Resp 22 06/08/21 08:21 BP 122/69 06/08/21 08:21 Pulse Ox 91 L 06/08/21 08:21 Intake & Output 06/07/21 06/08/21 06/08/21 18:59 06:59 18:59 Intake Total 836 200 180 Balance 836 200 180 Weight 125.8 kg Intake: Oral 836 200 180 Other: Voiding Method Toilet Toilet # Voids 3 1 - Exam GENERAL EXAM: Alert, 56-year-old white male, appears tired, fatigued on Airvo at 40 L and 60% FiO2 with a pulse ox of 92%, comfortable in no apparent distress. HEAD: Normocephalic/atraumatic. EYES: Normal reaction of pupils, equal size. Conjunctiva pink, sclera white. NOSE: Clear with pink turbinates. THROAT: No erythema or exudates. NECK: No masses, no JVD, no thyroid enlargement, no adenopathy. CHEST: No chest wall deformity. Symmetrical expansion. LUNGS: Equal air entry with scattered crackles CVS: Regular rate and rhythm, normal S1 and S2, no gallops, no murmurs, no rubs ABDOMEN: Soft, nontender. No hepatosplenomegaly, normal bowel sounds, no guarding or rigidity. EXTREMITIES: No clubbing, no edema, no cyanosis, 2+ pulses and upper and lower extremities. MUSCULOSKELETAL: Muscle strength and tone normal. SPINE: No scoliosis or deformity SKIN: No rashes CENTRAL NERVOUS SYSTEM: Alert and oriented -3. No focal deficits, tone is normal in all 4 extremities. PSYCHIATRIC: Alert and oriented -3. Appropriate affect. Intact judgment and insight. - Labs CBC & Chem 7: 06/06/21 14:09 06/06/21 14:09 Labs: Abnormal Lab Results - Last 24 Hours (Table) 06/07/21 06/07/21 06/07/21 Range/Units 12:37 16:53 20:13 POC Glucose (mg/dL) 123 H 114 H 121 H (75-99) mg/dL 06/08/21 Range/Units 06:05 POC Glucose (mg/dL) 181 H (75-99) mg/dL Assessment and Plan Plan: Assessment: #1. Acute hypoxic respiratory failure related to acute COVID-19 pneumonia, t ested +9 days prior to presentation, patient is outside of the window for Remdesivir treatment. Non-vaccinated for COVID-19. Started on Bariticinib on 06/07/2021 #2. Never smoker #3. Increased d-dimer, inflammatory markers related to viral pneumonia #4. Elevated LFTs, abdominal ultrasound showing fatty infiltration of liver Plan: Continues on Airvo at 40 l, Fio2 60 Continue Bariticinib- Continue Decadron 6 mg daily Lovenox 40 mg twice daily Obtain follow-up inflammatory markers and d-dimer We'll continue to follow and monitor for worsening dyspnea and hypoxia I performed a history & physical examination of the patient and discussed their management with my nurse practitioner, Sherry Jimenez. I reviewed the nurse practitioner's note and agree with the documented findings and plan of care. Lung sounds are positive for diffuse crackles throughout the lung smart. The findings and the impression was discussed with the patient. I attest to the documentation by the nurse practitioner. Time with Patient: Less than 30
[2021-06-08] MEDS: BARICITINIB 2 MG TABLET PO SCH (11:39)
[2021-06-08 11:40] LABS: Glucose,Whole Blood 136 mg/dL (75-99)
--- NOTE | 2021-06-08 15:32 | P.PN ---
Progress Note - Text Progress Note Date: 06/08/21 Chief Complaint: Shortness of breath History of presenting complaint: This is a pleasant 56-year-old patient who follows with Dr. Hallman. Normal. Good health. Patient's thyroid of not feeling well about 9 days ago. And tested positive for COVID 19. Patient has not taken his COVID-19 vaccination. Initially symptoms are nonspecific then progressed to develop cough shortness of breath. Patient has been maintained his taste and smell. No diarrhea. Very slight body ache. No headache. Decreasing appetite. Patient became more and more short of breath. Decided to come to the ER. Found of a pulse ox of 82%. Admitted. Admitted with acute COVID 19 pneumonitis, acute hypoxic respiratory failure. Started on IV dexamethasone. June 07: More short of breath. Sitting up in a chair. On high flow cannula and started on Airvo. Eating some. Some cough. Tired. Started on Baricitinib by pulmonary today June 08: Up in a chair. Oral intake fair. On Airvo 60%. Oral intake fair. Tired. Able to hold a conversation.. Review of systems: Was done for constitutional, cardiovascular, GI, pulmonary. relevant finding as above Active Medications Acetaminophen (Acetaminophen Tab 325 Mg Tab) 650 mg PO Q6HR PRN PRN Reason: Mild Pain or Fever > 100.5 Ascorbic Acid (Ascorbic Acid 500 Mg Tab) 1,000 mg PO DAILY [facility] Last Admin: 06/08/21 08:25 Dose: 1,000 mg Documented by: Baricitinib (Baricitinib 2 Mg Tablet) 4 mg PO DAILY@1300 [facility] Stop: 06/20/21 13:01 Last Admin: 06/08/21 11:39 Dose: 4 mg Documented by: Cholecalciferol (Cholecalciferol 25 Mcg (1000 Iu) Tablet) 100 mcg PO DAILY [facility] Last Admin: 06/08/21 08:25 Dose: 100 mcg Documented by: Dexamethasone Sodium Phosphate (Dexamethasone Sod Phosphate 10 Mg/Ml 1 Ml Vial) 6 mg IV DAILY [facility] Last Admin: 06/08/21 08:26 Dose: 6 mg Documented by: Enoxaparin Sodium (Enoxaparin 40 Mg/0.4 Ml Syringe) 40 mg SQ Q12HR [facility] Ibuprofen (Ibuprofen 400 Mg Tab) 400 mg PO Q6HR PRN PRN Reason: Mild Pain or Fever > 100.5 Insulin Aspart (Insulin Aspart (Novolog) 100 Unit/Ml Vial) 0 unit SQ ACHS [facility]; Protocol Last Admin: 06/08/21 11:39 Dose: Not Given Documented by: Naloxone HCl (Naloxone 0.4 Mg/Ml 1 Ml Vial) 0.2 mg IV Q2M PRN PRN Reason: Opioid Reversal Zinc Sulfate (Zinc Sulfate 220 Mg Cap) 220 mg PO DAILY [facility] Last Admin: 06/08/21 08:25 Dose: 220 mg Documented by: Past medical history to include: Unremarkable Social history: . 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 Does not smoke. Alcohol occasionally. Family history: Myocardial infarction Physical examination: VITAL SIGNS: 98.6, 96, 22, 138/76, 92% on 60% Airvo GENERAL: Sitting up in a chair, short of breath. LUNGS: Respiratory rate increased, PSYCH: [Alert and oriented x3; mood and affect tired. Rest of the exam per pulmonary and nursing INVESTIGATIONS, reviewed in the clinical context: June 08: D-dimer 0.83, CRP 6.1 Liver ultrasound: Possible fatty infiltration June 07: D-dimer 1.49 CRP 7.3 WBC 9 hemoglobin 15.2 platelets 232 d-dimer 1.12 potassium 4.2 sodium 141 BUN 23 creatinine 0.66 AST 110 ALT 66 LDH 2094 CRP 15.7 Chest x-ray film personally reviewed by me-bilateral infiltrates EKG tracing personally reviewed by me-normal sinus rhythm, nonspecific T-wave changes Assessment and plan: -Acute COVID 19 pneumonitis, in unvaccinated patient: Not improving Dexamethasone 6 mg daily, subcu Lovenox, vitamin C vitamin D zinc. Per [facility] policy patient is out of the window for Remdesivir. Baricitinib -Acute hypoxic respiratory failure from COVID 19 pneumonitis.: Slow to respond On Airvo -Obesity BMI 37.15 Weight loss measures -Hyperglycemia secondary to steroids -Mildly elevated LFTs. Likely hepatic steatosis. Dexamethasone 6 mg, subcu Lovenox, Airvo,. Baricitinib Care was discussed with the patient.
[2021-06-08 16:45] LABS: Glucose,Whole Blood 138 mg/dL (75-99)
[2021-06-08 20:15] LABS: Glucose,Whole Blood 111 mg/dL (75-99)
[2021-06-08] MEDS: ENOXAPARIN 40 MG/0.4 ML SYRINGE SQ SCH (20:31)
[2021-06-09] MEDS: INSULIN ASPART (NovoLOG) 100 UNIT/ML VIAL SQ SCH ×4 (06:30→21:00)
[2021-06-09 06:37] LABS: Glucose,Whole Blood 96 mg/dL (75-99)
--- NOTE | 2021-06-09 07:14 | PN ---
PROGRESS NOTE DATE OF SERVICE: 06/08/2021. REASON FOR FOLLOW UP: Covid 19 pneumonia. INTERVAL HISTORY: Patient is afebrile. He is feeling slightly better. He is breathing more comfortably. Currently on AIRVO. Denies having chest pain. No worsening cough. No abdominal pain. No diarrhea. PHYSICAL EXAMINATION: Blood pressure 134/72 with a pulse of 81, temperature 97.7. He is 92% on 50% FiO2. General description is a middle-aged male up in the bed in no distress. Respiratory system: Unlabored breathing. Decreased intensity in breath sounds. Heart S1, S2. Regular rate and rhythm. Abdomen soft, no tenderness. LABS: D. dimer . CRP 6.1. DIAGNOSTIC IMPRESSION AND PLAN: Patient with acute COVID-19 infection the patient was out of the therapeutic window for Remdesivir currently on , Lovenox, dexamethasone, zinc and ascorbic acid to continue and monitor clinical course closely. MMODL / IJN: [id number] /
[2021-06-09] MEDS: ASCORBIC ACID 500 MG TAB PO SCH (08:01)
[2021-06-09] MEDS: CHOLECALCIFEROL 25 MCG (1000 IU) TABLET PO SCH (08:01)
[2021-06-09] MEDS: ENOXAPARIN 40 MG/0.4 ML SYRINGE SQ SCH ×2 (08:01→21:01)
[2021-06-09] MEDS: DEXAMETHASONE SOD PHOSPHATE 10 MG/ML 1 ML VIAL IV SCH (08:01)
[2021-06-09] MEDS: ZINC SULFATE 220 MG CAP PO SCH (08:01)
[2021-06-09 10:30] LABS: African American GFR (CKD) >90 (>60 ml/min/1.73 sqM); Anion Gap 9 mmol/L; Blood Urea Nitrogen 19 mg/dL (9-20); Calcium 8.9 mg/dL (8.4-10.2); Carbon Dioxide 25 mmol/L (22-30); Chloride 101 mmol/L (98-107); Glucose 159 mg/dL (74-99); LDH 1355 U/L (313-618); Non-African American GFR(CKD) >90 (>60 ml/min/1.73 sqM); Potassium 4.3 mmol/L (3.5-5.1); Sodium 135 mmol/L (137-145)
[2021-06-09 10:45] LABS: C Reactive Protein 8.7 mg/dL (<1.0)
[2021-06-09 11:45] LABS: Glucose,Whole Blood 137 mg/dL (75-99)
[2021-06-09] MEDS: BARICITINIB 2 MG TABLET PO SCH (12:28)
--- NOTE | 2021-06-09 13:26 | P.PN ---
Subjective Progress Note Date: 06/09/21 Principal diagnosis: COVID 19 pneumonia This is a 54-year-old white male patient of Dr. Hallman, who came into the emergency department on 06/06/2021 for evaluation of increasing shortness of breath. She apparently tested positive for COVID-19 9 days ago. His dyspnea has been progressive over the past week. Initially his symptoms were minimal with occasional body aches, then this week his cough developed, and he has been progressively getting more short of breath. He does not have any history of chronic lung disease. He takes no prescription medications, he is a non-smoker, patient has not received COVID-19 vaccine. Patient reports 1 day of fever 3 days ago, and has not had any recurrence since. No nausea vomiting or diarrhea, no abdominal pain. His pulse ox in the emergency department was low at 82% on room air, he is afebrile, slightly tachycardic. His blood pressure is stable at 136/85. Chest x-ray showed multifocal patchy areas of bilateral infiltrates. Lab findings showed white blood cell count of 9.0, hemoglobin of 15.2, platelet count is 232, INR is 1.0, sodium is 141, potassium is 4.2, chloride is 108, CO2 is 27, B1 is 23, creatinine 0.66, lactic acid was 1.3, AST was 110, ALT was 66, LDH was 2094, troponin was less than 0.012, CRP was 15.7. Patient was placed on 8 L of supplemental oxygen, his pulse ox is 88%. He was placed on IV Decadron 6 mg daily, and we were consulted for acute hypoxic rest or a failure related to COVID-19 pneumonia On Today's evaluation on 06/07/2021 patient seen in follow-up on selective care unit. Appears fatigued on today's exam, but does not appear to be in any acute distress. However his oxygen requirements have progressed since yesterday. And patient is currently on 15 L high flow and his pulse ox 88%. He is afebrile, signs are stable, he was started on steroids in the form of Decadron yesterday, prophylactic dose Lovenox 40 mg daily. he was outside of the window for Remdesivir. Chest x-ray showed multifocal patchy areas of bilateral infiltrates on admission, no repeat chest x-ray. Today's labs have been reviewed showing d- dimer 1.49, rest of the labs are pending for today. On 06/08/2021 patient seen in follow-up on selective care unit, he is currently on irritable at 40 L and FiO2 of 60%, with pulse ox of 91-92%. Looks tired, but appears to be in no acute distress, patient is afebrile, he is very dyspneic with any exertion, patient does get up to the bathroom does not want to use bedside urinal. He was instructed to call for help to ambulate. He continues on Bariticinib, today is day 2 of treatment. In addition he is on Decadron 6 mg daily, and his Lovenox is 40 mg twice daily. Today's labs are pending for today, yesterday's d-dimer was 1.49, his LDH was 4, CRP was 7.3 on yesterday's labs. His LFTs were elevated, an ultrasound of the abdomen was completed showing diffuse fatty infiltration of the liver. On 06/09/2021 patient seen in follow-up on selective care unit, he remains on Airvo, at 40 L, but FiO2 is currently down to 50%, from 55% earlier. His sat on those settings is 89-93%, breathing fairly comfortably, he sitting up in the chair, does not appear to be in any acute distress, remains on a combination of Baricitinib, Decadron, and Lovenox currently at 40 mg twice daily. No new chest x-ray today. Today's labs have been reviewed, d-dimer is currently 2.18, sodium is 135, the rest of electrolytes were unremarkable, BUN is 19, creatinine 0.64. Tolerating oral intake, no abdominal pain, no chest discomfort, still coughing. LDH is improving and is down to 1355, CRP is down to 8.7 temp Objective - Vital Signs Vital signs: Vital Signs Temp 98.1 F 06/09/21 07:59 Pulse 78 06/09/21 12:25 Resp 24 06/09/21 12:25 BP 134/77 06/09/21 12:25 Pulse Ox 90 L 06/09/21 12:28 Intake & Output 06/08/21 06/09/21 06/09/21 18:59 06:59 18:59 Intake Total 720 240 360 Balance 720 240 360 Weight 124.5 kg Intake: Oral 720 240 360 Other: Voiding Method Toilet Toilet # Voids 2 1 # Bowel Movements 1 - Exam GENERAL EXAM: Alert, 56-year-old white male, on Airvo at 40 L and 5% FiO2 with a pulse ox of 92%, comfortable in no apparent distress. HEAD: Normocephalic/atraumatic. EYES: Normal reaction of pupils, equal size. Conjunctiva pink, sclera white. NOSE: Clear with pink turbinates. THROAT: No erythema or exudates. NECK: No masses, no JVD, no thyroid enlargement, no adenopathy. CHEST: No chest wall deformity. Symmetrical expansion. LUNGS: Equal air entry with scattered crackles CVS: Regular rate and rhythm, normal S1 and S2, no gallops, no murmurs, no rubs ABDOMEN: Soft, nontender. No hepatosplenomegaly, normal bowel sounds, no guarding or rigidity. EXTREMITIES: No clubbing, no edema, no cyanosis, 2+ pulses and upper and lower extremities. MUSCULOSKELETAL: Muscle strength and tone normal. SPINE: No scoliosis or deformity SKIN: No rashes CENTRAL NERVOUS SYSTEM: Alert and oriented -3. No focal deficits, tone is normal in all 4 extremities. PSYCHIATRIC: Alert and oriented -3. Appropriate affect. Intact judgment and insight. - Labs CBC & Chem 7: 06/06/21 14:09 06/09/21 09:57 Labs: Abnormal Lab Results - Last 24 Hours (Table) 06/08/21 06/08/21 06/09/21 Range/Units 16:43 20:11 09:57 D-Dimer 2.18 H (<0.60) mg/L FEU Sodium (137-145) mmol/L Creatinine (0.66-1.25) mg/dL Glucose (74-99) mg/dL POC Glucose (mg/dL) 138 H 111 H (75-99) mg/dL Lactate Dehydrogenase (313-618) U/L C-Reactive Protein (<1.0) mg/dL 06/09/21 06/09/21 Range/Units 09:57 11:44 D-Dimer (<0.60) mg/L FEU Sodium 135 L (137-145) mmol/L Creatinine 0.64 L (0.66-1.25) mg/dL Glucose 159 H (74-99) mg/dL POC Glucose (mg/dL) 137 H (75-99) mg/dL Lactate Dehydrogenase 1355 H (313-618) U/L C-Reactive Protein 8.7 H (<1.0) mg/dL Assessment and Plan Plan: Assessment: #1. Acute hypoxic respiratory failure related to acute COVID-19 pneumonia, tested +9 days prior to presentation, patient is outside of the window for Remdesivir treatment. Non-vaccinated for COVID-19. Started on Bariticinib on 06/07/2021 #2. Never smoker #3. Increased d-dimer, inflammatory markers related to viral pneumonia #4. Elevated LFTs, abdominal ultrasound showing fatty infiltration of liver Plan: Continues on Airvo at 40 l, Fio2 50 We were able to wean the FiO2 down some, and the patient is maintaining O2 saturations above 88% Breathing fairly comfortably, appears to be in no acute distress, sitting up in a chair Continue Bariticinib- Continue Decadron 6 mg daily Lovenox 40 mg twice daily Inflammatory markers are improving on today's labs, d-dimer slightly increased, up to 2.18, continue Lovenox 40 mg twice a day May possibly switch to high flow nasal cannula tomorrow if we're able to come down on the FiO2 little bit more I performed a history & physical examination of the patient and discussed their management with my nurse practitioner, Sherry Jimenez. I reviewed the nurse padilla worrell's note and agree with the documented findings and plan of care. Lung sounds are positive for diffuse crackles throughout the lung smart. The findings and the impression was discussed with the patient. I attest to the documentation by the nurse practitioner. Time with Patient: Less than 30
--- NOTE | 2021-06-09 15:22 | P.PN ---
Progress Note - Text Progress Note Date: 06/09/21 Chief Complaint: Shortness of breath History of presenting complaint: This is a pleasant 56-year-old patient who follows with Dr. Hallman. Normal. Good health. Patient's thyroid of not feeling well about 9 days ago. And tested positive for COVID 19. Patient has not taken his COVID-19 vaccination. Initially symptoms are nonspecific then progressed to develop cough shortness of breath. Patient has been maintained his taste and smell. No diarrhea. Very slight body ache. No headache. Decreasing appetite. Patient became more and more short of breath. Decided to come to the ER. Found of a pulse ox of 82%. Admitted. Admitted with acute COVID 19 pneumonitis, acute hypoxic respiratory failure. Started on IV dexamethasone. June 07: More short of breath. Sitting up in a chair. On high flow cannula and started on Airvo. Eating some. Some cough. Tired. Started on Baricitinib by pulmonary today June 08: Up in a chair. Oral intake fair. On Airvo 60%. Oral intake fair. Tired. Able to hold a conversation.. June 09: Sitting, chair. On Airvo. Oral intake fair. Some cough. Tired. Short of breath at rest. Review of systems: Was done for constitutional, cardiovascular, GI, pulmonary. relevant finding as above Active Medications Acetaminophen (Acetaminophen Tab 325 Mg Tab) 650 mg PO Q6HR PRN PRN Reason: Mild Pain or Fever > 100.5 Ascorbic Acid (Ascorbic Acid 500 Mg Tab) 1,000 mg PO DAILY [facility] Last Admin: 06/09/21 08:01 Dose: 1,000 mg Documented by: Baricitinib (Baricitinib 2 Mg Tablet) 4 mg PO DAILY@1300 [facility] Stop: 06/20/21 13:01 Last Admin: 06/09/21 12:28 Dose: 4 mg Documented by: Cholecalciferol (Cholecalciferol 25 Mcg (1000 Iu) Tablet) 100 mcg PO DAILY [facility] Last Admin: 06/09/21 08:01 Dose: 100 mcg Documented by: Dexamethasone Sodium Phosphate (Dexamethasone Sod Phosphate 10 Mg/Ml 1 Ml Vial) 6 mg IV DAILY [facility] Last Admin: 06/09/21 08:01 Dose: 6 mg Documented by: Enoxaparin Sodium (Enoxaparin 40 Mg/0.4 Ml Syringe) 40 mg SQ Q12HR [facility] Last Admin: 06/09/21 08:01 Dose: 40 mg Documented by: Ibuprofen (Ibuprofen 400 Mg Tab) 400 mg PO Q6HR PRN PRN Reason: Mild Pain or Fever > 100.5 Insulin Aspart (Insulin Aspart (Novolog) 100 Unit/Ml Vial) 0 unit SQ ACHS [facility]; Protocol Last Admin: 06/09/21 12:28 Dose: 1 unit Documented by: Naloxone HCl (Naloxone 0.4 Mg/Ml 1 Ml Vial) 0.2 mg IV Q2M PRN PRN Reason: Opioid Reversal Zinc Sulfate (Zinc Sulfate 220 Mg Cap) 220 mg PO DAILY [facility] Last Admin: 06/09/21 08:01 Dose: 220 mg Documented by: Past medical history to include: Unremarkable Social history: . 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 Does not smoke. Alcohol occasionally. Family history: Myocardial infarction Physical examination: VITAL SIGNS: Afebrile, 78, 24, 1:30/77, 88% on 50% Airvo GENERAL: Sitting up in a chair, short of breath. LUNGS: Respiratory rate increased, PSYCH: [Alert and oriented x3; mood and affect tired. Rest of the exam per pulmonary and nursing INVESTIGATIONS, reviewed in the clinical context: June 09: D-dimer 2.18 creatinine 0.64 CRP 8.7 June 08: D-dimer 0.83, CRP 6.1 Liver ultrasound: Possible fatty infiltration June 07: D-dimer 1.49 CRP 7.3 WBC 9 hemoglobin 15.2 platelets 232 d-dimer 1.12 potassium 4.2 sodium 141 BUN 23 creatinine 0.66 AST 110 ALT 66 LDH 2094 CRP 15.7 Chest x-ray film personally reviewed by me-bilateral infiltrates EKG tracing personally reviewed by me-normal sinus rhythm, nonspecific T-wave changes Assessment and plan: -Acute COVID 19 pneumonitis, in unvaccinated patient: Not improving Dexamethasone 6 mg daily, subcu Lovenox, vitamin C vitamin D zinc. Per [facility] policy patient is out of the window for Remdesivir. Baricitinib -Acute hypoxic respiratory failure from COVID 19 pneumonitis.: Slow to respond On Airvo 50% -Obesity BMI 37.15 Weight loss measures -Hyperglycemia secondary to steroids -Mildly elevated LFTs. Likely hepatic steatosis. Dexamethasone 6 mg, subcu Lovenox, Airvo,. Baricitinib repeat labs. Follow with pulmonary.
[2021-06-09 16:35] LABS: Glucose,Whole Blood 142 mg/dL (75-99)
--- NOTE | 2021-06-09 16:49 | PN ---
PROGRESS NOTE DATE OF SERVICE: 06/09/2021 REASON FOR FOLLOWUP: COVID-19 pneumonia. INTERVAL HISTORY: Patient is afebrile. The patient is breathing comfortably. The patient denies having any chest pain. Cough has decreased in intensity. It is mostly dry in nature. No nausea, no vomiting. No abdominal pain. No diarrhea. PHYSICAL EXAMINATION: Blood pressure 133/77, pulse of 95, temperature 98.3. He is 90% on 50% AIRVO. General description is a middle-aged male up in the bed in no distress. Respiratory system: Unlabored breathing, decreased intensity of breath sounds. No wheeze. Heart S1, S2. Regular rate and rhythm. Abdomen soft, no tenderness. LAB DATA: Hemoglobin is 19, white count 0.64. D-dimer is of 2.18 and LDH is up. DIAGNOSTIC IMPRESSION/PLAN: Patient with acute COVID-19 pneumonia currently on , dexamethasone, Lovenox, zinc and ascorbic acid along with respiratory support and monitor clinical course closely. Continue supportive care. MMODL / IJN: [id number] /
[2021-06-09 20:28] LABS: Glucose,Whole Blood 107 mg/dL (75-99)
--- NOTE | 2021-06-10 07:49 | XR ---
EXAMINATION TYPE: XR chest 1V portable DATE OF EXAM: 06/10/2021 COMPARISON: 06/06/2021 HISTORY: Cough TECHNIQUE: Single frontal view of the chest is obtained. FINDINGS: Bilateral patchy infiltrate stable. No pleural effusion or pneumothorax. Heart size normal . Arthropathy shoulders. IMPRESSION: Stable patchy bilateral infiltrate or pneumonia.
[2021-06-10] MEDS: INSULIN ASPART (NovoLOG) 100 UNIT/ML VIAL SQ SCH ×4 (07:56→22:38)
[2021-06-10] MEDS: ENOXAPARIN 40 MG/0.4 ML SYRINGE SQ SCH ×2 (08:01→22:38)
[2021-06-10] MEDS: ZINC SULFATE 220 MG CAP PO SCH (08:02)
[2021-06-10] MEDS: CHOLECALCIFEROL 25 MCG (1000 IU) TABLET PO SCH (08:02)
[2021-06-10] MEDS: ASCORBIC ACID 500 MG TAB PO SCH (08:02)
[2021-06-10] MEDS: DEXAMETHASONE SOD PHOSPHATE 10 MG/ML 1 ML VIAL IV SCH (08:02)
[2021-06-10] MEDS: BARICITINIB 2 MG TABLET PO SCH (11:39)
[2021-06-10 11:57] LABS: Glucose,Whole Blood 128 mg/dL (75-99)
--- NOTE | 2021-06-10 13:41 | P.PN ---
Subjective Progress Note Date: 06/10/21 Principal diagnosis: COVID 19 pneumonia This is a 54-year-old white male patient of Dr. Hallman, who came into the emergency department on 06/06/2021 for evaluation of increasing shortness of breath. She apparently tested positive for COVID-19 9 days ago. His dyspnea has been progressive over the past week. Initially his symptoms were minimal with occasional body aches, then this week his cough developed, and he has been progressively getting more short of breath. He does not have any history of chronic lung disease. He takes no prescription medications, he is a non-smoker, patient has not received COVID-19 vaccine. Patient reports 1 day of fever 3 days ago, and has not had any recurrence since. No nausea vomiting or diarrhea, no abdominal pain. His pulse ox in the emergency department was low at 82% on room air, he is afebrile, slightly tachycardic. His blood pressure is stable at 136/85. Chest x-ray showed multifocal patchy areas of bilateral infiltrates. Lab findings showed white blood cell count of 9.0, hemoglobin of 15.2, platelet count is 232, INR is 1.0, sodium is 141, potassium is 4.2, chloride is 108, CO2 is 27, B1 is 23, creatinine 0.66, lactic acid was 1.3, AST was 110, ALT was 66, LDH was 2094, troponin was less than 0.012, CRP was 15.7. Patient was placed on 8 L of supplemental oxygen, his pulse ox is 88%. He was placed on IV Decadron 6 mg daily, and we were consulted for acute hypoxic rest or a failure related to COVID-19 pneumonia On Today's evaluation on 06/07/2021 patient seen in follow-up on selective care unit. Appears fatigued on today's exam, but does not appear to be in any acute distress. However his oxygen requirements have progressed since yesterday. And patient is currently on 15 L high flow and his pulse ox 88%. He is afebrile, signs are stable, he was started on steroids in the form of Decadron yesterday, prophylactic dose Lovenox 40 mg daily. he was outside of the window for Remdesivir. Chest x-ray showed multifocal patchy areas of bilateral infiltrates on admission, no repeat chest x-ray. Today's labs have been reviewed showing d- dimer 1.49, rest of the labs are pending for today. On 06/08/2021 patient seen in follow-up on selective care unit, he is currently on irritable at 40 L and FiO2 of 60%, with pulse ox of 91-92%. Looks tired, but appears to be in no acute distress, patient is afebrile, he is very dyspneic with any exertion, patient does get up to the bathroom does not want to use bedside urinal. He was instructed to call for help to ambulate. He continues on Bariticinib, today is day 2 of treatment. In addition he is on Decadron 6 mg daily, and his Lovenox is 40 mg twice daily. Today's labs are pending for today, yesterday's d-dimer was 1.49, his LDH was 2094, CRP was 7.3 on yesterday's labs. His LFTs were elevated, an ultrasound of the abdomen was completed showing diffuse fatty infiltration of the liver. On 06/09/2021 patient seen in follow-up on selective care unit, he remains on Airvo, at 40 L, but FiO2 is currently down to 50%, from 55% earlier. His sat on those settings is 89-93%, breathing fairly comfortably, he sitting up in the chair, does not appear to be in any acute distress, remains on a combination of Baricitinib, Decadron, and Lovenox currently at 40 mg twice daily. No new chest x-ray today. Today's labs have been reviewed, d-dimer is currently 2.18, sodium is 135, the rest of electrolytes were unremarkable, BUN is 19, creatinine 0.64. Tolerating oral intake, no abdominal pain, no chest discomfort, still coughing. LDH is improving and is down to 1355, CRP is down to 8.7 temp On 06/10/2021 patient seen in follow-up on selective care unit, he was on Airvo at 40 L and FiO2 of 50%, breathing very comfortably, his pulse ox was ranging between 91-93%. Vital signs have been stable, no fever or chills, blood pressure is been stable, he is up in the chair, no complaints of chest discomfort. At noontime she was switched over to 15 L per high flow nasal cannula and his pulse ox remains at 93%, he is sitting up in a chair, he is eating lunch, he continues on Bariticinib, Lovenox 40 mg twice daily, and Decadron, his chest x-ray showing stable patchy bilateral infiltrates, possibly slightly improved. His labs have been reviewed, d-dimer is 1.41, CRP is 8.4, LDH is pending. Objective - Vital Signs Vital signs: Vital Signs Temp 97.9 F 06/10/21 11:36 Pulse 102 H 06/10/21 11:36 Resp 20 06/10/21 11:36 BP 110/78 06/10/21 11:36 Pulse Ox 93 L 06/10/21 12:09 Intake & Output 06/09/21 06/10/21 06/10/21 18:59 06:59 18:59 Intake Total 540 240 Output Total 272 527 6994 Balance -742 -637 -0256 Weight 123.7 kg Intake: Oral 540 240 Output: Urine 292 598 [id number] Other: Voiding Method Toilet Toilet # Voids 1 # Bowel Movements 1 - Exam GENERAL EXAM: Alert, 56-year-old white male, currently on 15 L high flow nasal cannula with a pulse ox of 93% comfortable in no apparent distress. HEAD: Normocephalic/atraumatic. EYES: Normal reaction of pupils, equal size. Conjunctiva pink, sclera white. NOSE: Clear with pink turbinates. THROAT: No erythema or exudates. NECK: No masses, no JVD, no thyroid enlargement, no adenopathy. CHEST: No chest wall deformity. Symmetrical expansion. LUNGS: Equal air entry with scattered crackles CVS: Regular rate and rhythm, normal S1 and S2, no gallops, no murmurs, no rubs ABDOMEN: Soft, nontender. No hepatosplenomegaly, normal bowel sounds, no guarding or rigidity. EXTREMITIES: No clubbing, no edema, no cyanosis, 2+ pulses and upper and lower extremities. MUSCULOSKELETAL: Muscle strength and tone normal. SPINE: No scoliosis or deformity SKIN: No rashes CENTRAL NERVOUS SYSTEM: Alert and oriented -3. No focal deficits, tone is normal in all 4 extremities. PSYCHIATRIC: Alert and oriented -3. Appropriate affect. Intact judgment and insight. - Labs CBC & Chem 7: 06/06/21 14:09 06/09/21 09:57 Labs: Abnormal Lab Results - Last 24 Hours (Table) 06/09/21 06/09/21 06/10/21 Range/Units 16:34 20:23 08:17 D-Dimer 1.41 H (<0.60) mg/L FEU POC Glucose (mg/dL) 142 H 107 H (75-99) mg/dL C-Reactive Protein (<1.0) mg/dL 06/10/21 06/10/21 Range/Units 08:17 11:51 D-Dimer (<0.60) mg/L FEU POC Glucose (mg/dL) 128 H (75-99) mg/dL C-Reactive Protein 8.4 H (<1.0) mg/dL Assessment and Plan Plan: Assessment: #1. Acute hypoxic respiratory failure related to acute COVID-19 pneumonia, tested +9 days prior to presentation, patient is outside of the window for Remdesivir treatment. Non-vaccinated for COVID-19. Started on Bariticinib on 06/07/2021 #2. Never smoker #3. Increased d-dimer, inflammatory markers related to viral pneumonia #4. Elevated LFTs, abdominal ultrasound showing fatty infiltration of liver Plan: Patient has been transitioned to high flow nasal cannula at 15 L, and he is tolerating it well Vital signs have been stable Breathing fairly comfortably, appears to be in no acute distress, sitting up in a chair Continue Bariticinib- Continue Decadron 6 mg daily Lovenox 40 mg twice daily Today's labs have been noted Continue weaning FiO2 to maintain O2 saturations at 88% and above I performed a history & physical examination of the patient and discussed their management with my nurse practitioner, Sherry Jimenez. I reviewed the nurse practitioner's note and agree with the documented findings and plan of care. Lung sounds are positive for diffuse crackles throughout the lung smart. The findings and the impression was discussed with the patient. I attest to the documentation by the nurse practitioner. Time with Patient: Less than 30
--- NOTE | 2021-06-10 15:01 | P.PN ---
Progress Note - Text Progress Note Date: 06/10/21 Chief Complaint: Shortness of breath History of presenting complaint: This is a pleasant 56-year-old patient who follows with Dr. Hallman. Normal. Good health. Patient's thyroid of not feeling well about 9 days ago. And tested positive for COVID 19. Patient has not taken his COVID-19 vaccination. Initially symptoms are nonspecific then progressed to develop cough shortness of breath. Patient has been maintained his taste and smell. No diarrhea. Very slight body ache. No headache. Decreasing appetite. Patient became more and more short of breath. Decided to come to the ER. Found of a pulse ox of 82%. Admitted. Admitted with acute COVID 19 pneumonitis, acute hypoxic respiratory failure. Started on IV dexamethasone. June 07: More short of breath. Sitting up in a chair. On high flow cannula and started on Airvo. Eating some. Some cough. Tired. Started on Baricitinib by pulmonary today June 08: Up in a chair. Oral intake fair. On Airvo 60%. Oral intake fair. Tired. Able to hold a conversation.. June 09: Sitting, chair. On Airvo. Oral intake fair. Some cough. Tired. Short of breath at rest. June 10: Sitting up in a chair. Short of breath. Feeling a little bit better. Eating some. Some cough. Had BM. On Airvo 50% Review of systems: Was done for constitutional, cardiovascular, GI, pulmonary. relevant finding as above Active Medications Acetaminophen (Acetaminophen Tab 325 Mg Tab) 650 mg PO Q6HR PRN PRN Reason: Mild Pain or Fever > 100.5 Ascorbic Acid (Ascorbic Acid 500 Mg Tab) 1,000 mg PO DAILY [facility] Last Admin: 06/10/21 08:02 Dose: 1,000 mg Documented by: Baricitinib (Baricitinib 2 Mg Tablet) 4 mg PO DAILY@1300 [facility] Stop: 06/20/21 13:01 Last Admin: 06/10/21 11:39 Dose: 4 mg Documented by: Cholecalciferol (Cholecalciferol 25 Mcg (1000 Iu) Tablet) 100 mcg PO DAILY [facility] Last Admin: 06/10/21 08:02 Dose: 100 mcg Documented by: Dexamethasone Sodium Phosphate (Dexamethasone Sod Phosphate 10 Mg/Ml 1 Ml Vial) 6 mg IV DAILY [facility] Last Admin: 06/10/21 08:02 Dose: 6 mg Documented by: Enoxaparin Sodium (Enoxaparin 40 Mg/0.4 Ml Syringe) 40 mg SQ Q12HR [facility] Last Admin: 06/10/21 08:01 Dose: 40 mg Documented by: Ibuprofen (Ibuprofen 400 Mg Tab) 400 mg PO Q6HR PRN PRN Reason: Mild Pain or Fever > 100.5 Insulin Aspart (Insulin Aspart (Novolog) 100 Unit/Ml Vial) 0 unit SQ ACHS [facility]; Protocol Last Admin: 06/10/21 11:54 Dose: Not Given Documented by: Naloxone HCl (Naloxone 0.4 Mg/Ml 1 Ml Vial) 0.2 mg IV Q2M PRN PRN Reason: Opioid Reversal Zinc Sulfate (Zinc Sulfate 220 Mg Cap) 220 mg PO DAILY [facility] Last Admin: 06/10/21 08:02 Dose: 220 mg Documented by: Past medical history to include: Unremarkable Social history: . Works as a [employer]. Does not smoke. Alcohol occasionally. Family history: Myocardial infarction Physical examination: VITAL SIGNS: 97.9, 102, 20, 110/78, Airvo at 50% GENERAL: Sitting up in a chair, short of breath. LUNGS: Respiratory rate increased, PSYCH: [Alert and oriented x3; mood and affect tired. NEUROLOGICAL: Moving all 4 limbs Rest of the exam per pulmonary and nursing INVESTIGATIONS, reviewed in the clinical context: June 10: D-dimer 1.41 CRP 8.4 June 09: D-dimer 2.18 creatinine 0.64 CRP 8.7 June 08: D-dimer 0.83, CRP 6.1 Liver ultrasound: Possible fatty infiltration June 07: D-dimer 1.49 CRP 7.3 WBC 9 hemoglobin 15.2 platelets 232 d-dimer 1.12 potassium 4.2 sodium 141 BUN 23 creatinine 0.66 AST 110 ALT 66 LDH 2094 CRP 15.7 Chest x-ray film personally reviewed by me-bilateral infiltrates EKG tracing personally reviewed by me-normal sinus rhythm, nonspecific T-wave changes Assessment and plan: -Acute COVID 19 pneumonitis, in unvaccinated patient: Slow to respond Dexamethasone 6 mg daily, subcu Lovenox, vitamin C vitamin D zinc. Per [facility] policy patient is out of the window for Remdesivir. Baricitinib -Acute hypoxic respiratory failure from COVID 19 pneumonitis.: Slow to respond On Airvo 50% -Obesity BMI 37.15 Weight loss measures -Hyperglycemia secondary to steroids -Mildly elevated LFTs. Likely hepatic steatosis. Dexamethasone 6 mg, subcu Lovenox-per pulmonary, Airvo-60%,. Baricitinib discussed with patient
[2021-06-10 16:23] LABS: Glucose,Whole Blood 136 mg/dL (75-99)
--- NOTE | 2021-06-10 19:35 | PN ---
PROGRESS NOTE DATE OF SERVICE: 06/10/2021 REASON FOR FOLLOWUP: COVID-19 pneumonia. INTERVAL HISTORY: The patient is afebrile. He is feeling better, breathing comfortably. The patient denies having any chest pain or any worsening cough. No nausea, vomiting. No abdominal pain or diarrhea. PHYSICAL EXAMINATION: Blood pressure 132/74, pulse of 94, temperature 98.1. He is 91% on 13 L nasal cannula. GENERAL DESCRIPTION: General description is a middle-aged male up in the bed in no distress. RESPIRATORY SYSTEM: Unlabored breathing. Decreased intensity of breath sounds. No wheeze. HEART: S1, S2. Regular rate and rhythm. ABDOMEN: Soft. No tenderness. LAB DATA: D-dimer is down to 1.41. CRP is 8.4. DIAGNOSTIC IMPRESSION AND PLAN: Patient with acute COVID-19 pneumonia. Patient seems to be slowly clinically responding to dexamethasone, Lovenox, zinc, ascorbic acid; to continue along with baricitinib and monitor his clinical course closely. Continue supportive care. MMODL / IJN: [id number] /
[2021-06-10 19:38] LABS: Glucose,Whole Blood 185 mg/dL (75-99)
[2021-06-10 21:14] LABS: Ferritin 2081.1 ng/mL (22.0-322.0)
[2021-06-11 06:18] LABS: Glucose,Whole Blood 72 mg/dL (75-99)
[2021-06-11] MEDS: INSULIN ASPART (NovoLOG) 100 UNIT/ML VIAL SQ SCH ×4 (08:52→20:08)
[2021-06-11] MEDS: ASCORBIC ACID 500 MG TAB PO SCH (08:59)
[2021-06-11] MEDS: ENOXAPARIN 40 MG/0.4 ML SYRINGE SQ SCH ×2 (08:59→20:05)
[2021-06-11] MEDS: CHOLECALCIFEROL 25 MCG (1000 IU) TABLET PO SCH (09:00)
[2021-06-11] MEDS: ZINC SULFATE 220 MG CAP PO SCH (09:00)
[2021-06-11] MEDS: DEXAMETHASONE SOD PHOSPHATE 10 MG/ML 1 ML VIAL IV SCH (09:01)
[2021-06-11 11:53] LABS: Glucose,Whole Blood 106 mg/dL (75-99)
[2021-06-11] MEDS: BARICITINIB 2 MG TABLET PO SCH (12:58)
--- NOTE | 2021-06-11 14:05 | P.PN ---
Subjective Progress Note Date: 06/11/21 Principal diagnosis: COVID 19 pneumonia This is a 54-year-old white male patient of Dr. Hallman, who came into the emergency department on 06/06/2021 for evaluation of increasing shortness of breath. She apparently tested positive for COVID-19 9 days ago. His dyspnea has been progressive over the past week. Initially his symptoms were minimal with occasional body aches, then this week his cough developed, and he has been progressively getting more short of breath. He does not have any history of chronic lung disease. He takes no prescription medications, he is a non-smoker, patient has not received COVID-19 vaccine. Patient reports 1 day of fever 3 days ago, and has not had any recurrence since. No nausea vomiting or diarrhea, no abdominal pain. His pulse ox in the emergency department was low at 82% on room air, he is afebrile, slightly tachycardic. His blood pressure is stable at 136/85. Chest x-ray showed multifocal patchy areas of bilateral infiltrates. Lab findings showed white blood cell count of 9.0, hemoglobin of 15.2, platelet count is 232, INR is 1.0, sodium is 141, potassium is 4.2, chloride is 108, CO2 is 27, B1 is 23, creatinine 0.66, lactic acid was 1.3, AST was 110, ALT was 66, LDH was 2094, troponin was less than 0.012, CRP was 15.7. Patient was placed on 8 L of supplemental oxygen, his pulse ox is 88%. He was placed on IV Decadron 6 mg daily, and we were consulted for acute hypoxic rest or a failure related to COVID-19 pneumonia On Today's evaluation on 06/07/2021 patient seen in follow-up on selective care unit. Appears fatigued on today's exam, but does not appear to be in any acute distress. However his oxygen requirements have progressed since yesterday. And patient is currently on 15 L high flow and his pulse ox 88%. He is afebrile, signs are stable, he was started on steroids in the form of Decadron yesterday, prophylactic dose Lovenox 40 mg daily. he was outside of the window for Remdesivir. Chest x-ray showed multifocal patchy areas of bilateral infiltrates on admission, no repeat chest x-ray. Today's labs have been reviewed showing d- dimer 1.49, rest of the labs are pending for today. On 06/08/2021 patient seen in follow-up on selective care unit, he is currently on irritable at 40 L and FiO2 of 60%, with pulse ox of 91-92%. Looks tired, but appears to be in no acute distress, patient is afebrile, he is very dyspneic with any exertion, patient does get up to the bathroom does not want to use bedside urinal. He was instructed to call for help to ambulate. He continues on Bariticinib, today is day 2 of treatment. In addition he is on Decadron 6 mg daily, and his Lovenox is 40 mg twice daily. Today's labs are pending for today, yesterday's d-dimer was 1.49, his LDH was 2094, CRP was 7.3 on yesterday's labs. His LFTs were elevated, an ultrasound of the abdomen was completed showing diffuse fatty infiltration of the liver. On 06/09/2021 patient seen in follow-up on selective care unit, he remains on Airvo, at 40 L, but FiO2 is currently down to 50%, from 55% earlier. His sat on those settings is 89-93%, breathing fairly comfortably, he sitting up in the chair, does not appear to be in any acute distress, remains on a combination of Baricitinib, Decadron, and Lovenox currently at 40 mg twice daily. No new chest x-ray today. Today's labs have been reviewed, d-dimer is currently 2.18, sodium is 135, the rest of electrolytes were unremarkable, BUN is 19, creatinine 0.64. Tolerating oral intake, no abdominal pain, no chest discomfort, still coughing. LDH is improving and is down to 1355, CRP is down to 8.7 temp On 06/10/2021 patient seen in follow-up on selective care unit, he was on Airvo at 40 L and FiO2 of 50%, breathing very comfortably, his pulse ox was ranging between 91-93%. Vital signs have been stable, no fever or chills, blood pressure is been stable, he is up in the chair, no complaints of chest discomfort. At noontime she was switched over to 15 L per high flow nasal cannula and his pulse ox remains at 93%, he is sitting up in a chair, he is eating lunch, he continues on Bariticinib, Lovenox 40 mg twice daily, and Decadron, his chest x-ray showing stable patchy bilateral infiltrates, possibly slightly improved. His labs have been reviewed, d-dimer is 1.41, CRP is 8.4, LDH is pending. On 06/11/2021 patient seen in follow-up on selective care unit, yesterday we transitioned him to regular high flow nasal cannula, today he is down to 13 L, his pulse ox is 94%, his been afebrile overnight, breathing fairly comfortably, does get dyspneic with exertion, however seems to be in no acute distress, he remains on Decadron 6 mg daily, he remains on baritivcinib, and Lovenox 40 mg daily, today's chest x-ray has been reviewed, his d-dimer 0.89, and CRP is 6.5, the rest of labs are pending for today. Afebrile overnight, no specific co mplaints this morning, no chest discomfort, he is awake and alert, no altered mentation. Objective - Vital Signs Vital signs: Vital Signs Temp 97.8 F 06/11/21 12:00 Pulse 107 H 06/11/21 12:00 Resp 20 06/11/21 12:00 BP 118/74 06/11/21 12:00 Pulse Ox 95 06/11/21 12:00 Intake & Output 06/10/21 06/11/21 06/11/21 18:59 06:59 18:59 Intake Total 900 240 Output Total 9500 1200 Balance -8600 -960 Weight 124 kg Intake: Oral 900 240 Output: Urine 9500 1200 Other: Voiding Method Toilet # Voids 2 2 # Bowel Movements 0 - Exam GENERAL EXAM: Alert, 56-year-old white male, currently on 13 L high flow nasal cannula with a pulse ox of 93% comfortable in no apparent distress. HEAD: Normocephalic/atraumatic. EYES: Normal reaction of pupils, equal size. Conjunctiva pink, sclera white. NOSE: Clear with pink turbinates. THROAT: No erythema or exudates. NECK: No masses, no JVD, no thyroid enlargement, no adenopathy. CHEST: No chest wall deformity. Symmetrical expansion. LUNGS: Equal air entry with scattered crackles CVS: Regular rate and rhythm, normal S1 and S2, no gallops, no murmurs, no rubs ABDOMEN: Soft, nontender. No hepatosplenomegaly, normal bowel sounds, no guarding or rigidity. EXTREMITIES: No clubbing, no edema, no cyanosis, 2+ pulses and upper and lower extremities. MUSCULOSKELETAL: Muscle strength and tone normal. SPINE: No scoliosis or deformity SKIN: No rashes CENTRAL NERVOUS SYSTEM: Alert and oriented -3. No focal deficits, tone is normal in all 4 extremities. PSYCHIATRIC: Alert and oriented -3. Appropriate affect. Intact judgment and insight. - Labs CBC & Chem 7: 06/06/21 14:09 06/09/21 09:57 Labs: Abnormal Lab Results - Last 24 Hours (Table) 06/06/21 06/10/21 06/10/21 Range/Units 14:09 16:19 19:36 D-Dimer (<0.60) mg/L FEU POC Glucose (mg/dL) 136 H 185 H (75-99) mg/dL Ferritin 2081.1 H (22.0-322.0) ng/mL C-Reactive Protein (<1.0) mg/dL 06/11/21 06/11/21 06/11/21 Range/Units 06:17 07:31 07:31 D-Dimer 0.89 H (<0.60) mg/L FEU POC Glucose (mg/dL) 72 L (75-99) mg/dL Ferritin (22.0-322.0) ng/mL C-Reactive Protein 6.5 H (<1.0) mg/dL 06/11/21 Range/Units 11:49 D-Dimer (<0.60) mg/L FEU POC Glucose (mg/dL) 106 H (75-99) mg/dL Ferritin (22.0-322.0) ng/mL C-Reactive Protein (<1.0) mg/dL Assessment and Plan Plan: Assessment: #1. Acute hypoxic respiratory failure related to acute COVID-19 pneumonia, tested +9 days prior to presentation, patient is outside of the window for Remdesivir treatment. Non-vaccinated for COVID-19. Started on Bariticinib on 06/07/2021 #2. Never smoker #3. Increased d-dimer, inflammatory markers related to viral pneumonia #4. Elevated LFTs, abdominal ultrasound showing fatty infiltration of liver Plan: Patient has been transitioned to high flow nasal cannula, and is currently down to 13 L, and he is tolerating it well Vital signs have been stable Breathing fairly comfortably, appears to be in no acute distress, sitting up in a chair Continue Bariticinib- Continue Decadron 6 mg daily Lovenox 40 mg twice daily Today's labs have been noted Continue weaning FiO2 to maintain O2 saturations at 88% and above I performed a history & physical examination of the patient and discussed their management with my nurse practitioner, Sherry Jimenez. I reviewed the nurse practitioner's note and agree with the documented findings and plan of care. Lung sounds are positive for diffuse crackles throughout the lung smart. The findings and the impression was discussed with the patient. I attest to the documentation by the nurse practitioner. Time with Patient: Less than 30
[2021-06-11 17:01] LABS: Glucose,Whole Blood 151 mg/dL (75-99)
--- NOTE | 2021-06-11 17:45 | P.PN ---
Progress Note - Text Progress Note Date: 06/11/21 Chief Complaint: Shortness of breath History of presenting complaint: This is a pleasant 56-year-old patient who follows with Dr. Hallman. Normal. Good health. Patient's thyroid of not feeling well about 9 days ago. And tested positive for COVID 19. Patient has not taken his COVID-19 vaccination. Initially symptoms are nonspecific then progressed to develop cough shortness of breath. Patient has been maintained his taste and smell. No diarrhea. Very slight body ache. No headache. Decreasing appetite. Patient became more and more short of breath. Decided to come to the ER. Found of a pulse ox of 82%. Admitted. Admitted with acute COVID 19 pneumonitis, acute hypoxic respiratory failure. Started on IV dexamethasone. June 07: More short of breath. Sitting up in a chair. On high flow cannula and started on Airvo. Eating some. Some cough. Tired. Started on Baricitinib by pulmonary today June 08: Up in a chair. Oral intake fair. On Airvo 60%. Oral intake fair. Tired. Able to hold a conversation.. June 09: Sitting, chair. On Airvo. Oral intake fair. Some cough. Tired. Short of breath at rest. June 10: Sitting up in a chair. Short of breath. Feeling a little bit better. Eating some. Some cough. Had BM. On Airvo 50% June 11: Sitting up in a chair. Oral intake fair. Some shortness of breath. Occasional cough. Using incentive spirometry. Patient changed over to high flow nasal cannula on 13 L. No fever. Review of systems: Was done for constitutional, cardiovascular, GI, pulmonary. relevant finding as above Active Medications Acetaminophen (Acetaminophen Tab 325 Mg Tab) 650 mg PO Q6HR PRN PRN Reason: Mild Pain or Fever > 100.5 Ascorbic Acid (Ascorbic Acid 500 Mg Tab) 1,000 mg PO DAILY [facility] Last Admin: 06/11/21 08:59 Dose: 1,000 mg Documented by: Baricitinib (Baricitinib 2 Mg Tablet) 4 mg PO DAILY@1300 [facility] Stop: 06/20/21 13:01 Last Admin: 06/11/21 12:58 Dose: 4 mg Documented by: Cholecalciferol (Cholecalciferol 25 Mcg (1000 Iu) Tablet) 100 mcg PO DAILY [facility] Last Admin: 06/11/21 09:00 Dose: 100 mcg Documented by: Dexamethasone Sodium Phosphate (Dexamethasone Sod Phosphate 10 Mg/Ml 1 Ml Vial) 6 mg IV DAILY [facility] Last Admin: 06/11/21 09:01 Dose: 6 mg Documented by: Enoxaparin Sodium (Enoxaparin 40 Mg/0.4 Ml Syringe) 40 mg SQ Q12HR [facility] Last Admin: 06/11/21 08:59 Dose: 40 mg Documented by: Ibuprofen (Ibuprofen 400 Mg Tab) 400 mg PO Q6HR PRN PRN Reason: Mild Pain or Fever > 100.5 Insulin Aspart (Insulin Aspart (Novolog) 100 Unit/Ml Vial) 0 unit SQ ACHS [facility]; Protocol Last Admin: 06/11/21 12:55 Dose: Not Given Documented by: Naloxone HCl (Naloxone 0.4 Mg/Ml 1 Ml Vial) 0.2 mg IV Q2M PRN PRN Reason: Opioid Reversal Zinc Sulfate (Zinc Sulfate 220 Mg Cap) 220 mg PO DAILY [facility] Last Admin: 06/11/21 09:00 Dose: 220 mg Documented by: Past medical history to include: Unremarkable Social history: . Works as a [employer]. Does not smoke. Alcohol occasionally. Family history: Myocardial infarction Physical examination: VITAL SIGNS: 97.8, 107, 20, 118/74, 95% on 13 L GENERAL: Sitting up in a chair, short of breath. LUNGS: Respiratory rate increased, PSYCH: [Alert and oriented x3; mood and affect tired. NEUROLOGICAL: Moving all 4 limbs Rest of the exam per pulmonary and nursing INVESTIGATIONS, reviewed in the clinical context: June 11, d-dimer 0.89 CRP 6.5 June 10: D-dimer 1.41 CRP 8.4 June 09: D-dimer 2.18 creatinine 0.64 CRP 8.7 June 08: D-dimer 0.83, CRP 6.1 Liver ultrasound: Possible fatty infiltration June 07: D-dimer 1.49 CRP 7.3 WBC 9 hemoglobin 15.2 platelets 232 d-dimer 1.12 potassium 4.2 sodium 141 BUN 23 creatinine 0.66 AST 110 ALT 66 LDH 2094 CRP 15.7 Chest x-ray film personally reviewed by me-bilateral infiltrates EKG tracing personally reviewed by me-normal sinus rhythm, nonspecific T-wave changes Assessment and plan: -Acute COVID 19 pneumonitis, in unvaccinated patient: Improving slowly Dexamethasone 6 mg daily, subcu Lovenox, vitamin C vitamin D zinc. Per [facility] policy patient is out of the window for Remdesivir. Baricitinib -Acute hypoxic respiratory failure from COVID 19 pneumonitis.: Slow to respond On high flow nasal cannula 13 L -Obesity BMI 37.15 Weight loss measures -Hyperglycemia secondary to steroids Follow Accu-Cheks -Mildly elevated LFTs. Likely hepatic steatosis. Dexamethasone 6 mg, subcu Lovenox-per pulmonary, high flow nasal cannula,. Baricitinib . discussed with patient
--- NOTE | 2021-06-11 18:55 | PN ---
PROGRESS NOTE DATE OF SERVICE: 06/11/2021 REASON FOR FOLLOWUP: COVID-19 infection. INTERVAL HISTORY: The patient is currently afebrile. The patient is breathing comfortably. The patient denies having any chest pain or shortness of breath. Occasional cough. No abdominal pain or diarrhea. PHYSICAL EXAMINATION: Blood pressure 118/74 with a pulse of 107, temperature 97.8. He is 95% on 13 L high- flow oxygen. GENERAL DESCRIPTION: General description is a middle-aged male up in the bed in no distress. RESPIRATORY SYSTEM: Unlabored breathing. Decreased intensity of breath sounds. No wheeze. HEART: S1, S2. Regular rate and rhythm. ABDOMEN: Soft. No tenderness. LABS: D-dimer is 0.89. CRP is 6.5. DIAGNOSTIC IMPRESSION AND PLAN: Patient with COVID-19 infection in this patient who seems to show slow clinical improvement. Patient is currently on dexamethasone, Lovenox, baricitinib, zinc, ascorbic acid; to continue, and monitor his clinical course closely. Continue supportive care. MMODL / IJN: [id number] /
[2021-06-11 20:05] LABS: Glucose,Whole Blood 125 mg/dL (75-99)
[2021-06-12 06:23] LABS: Glucose,Whole Blood 79 mg/dL (75-99)
[2021-06-12 08:35] LABS: ALT 113 U/L (4-49); AST 50 U/L (17-59); African American GFR (CKD) >90 (>60 ml/min/1.73 sqM); Albumin 3.2 g/dL (3.5-5.0); Alkaline Phosphatase 52 U/L (38-126); Anion Gap 7 mmol/L; Blood Urea Nitrogen 22 mg/dL (9-20); Calcium 9.3 mg/dL (8.4-10.2); Carbon Dioxide 31 mmol/L (22-30); Chloride 100 mmol/L (98-107); Glucose 146 mg/dL (74-99); Non-African American GFR(CKD) >90 (>60 ml/min/1.73 sqM); Potassium 4.3 mmol/L (3.5-5.1); Sodium 138 mmol/L (137-145); Total Bilirubin 0.7 mg/dL (0.2-1.3); Total Protein 6.7 g/dL (6.3-8.2)
[2021-06-12] MEDS: ASCORBIC ACID 500 MG TAB PO SCH (08:55)
[2021-06-12] MEDS: ZINC SULFATE 220 MG CAP PO SCH (08:55)
[2021-06-12] MEDS: CHOLECALCIFEROL 25 MCG (1000 IU) TABLET PO SCH (08:55)
[2021-06-12] MEDS: INSULIN ASPART (NovoLOG) 100 UNIT/ML VIAL SQ SCH ×4 (08:56→21:13)
[2021-06-12] MEDS: DEXAMETHASONE SOD PHOSPHATE 10 MG/ML 1 ML VIAL IV SCH (08:56)
[2021-06-12] MEDS: ENOXAPARIN 40 MG/0.4 ML SYRINGE SQ SCH (08:56)
[2021-06-12 11:37] LABS: Glucose,Whole Blood 78 mg/dL (75-99)
--- NOTE | 2021-06-12 15:09 | P.PN ---
Subjective Progress Note Date: 06/12/21 Principal diagnosis: COVID 19 pneumonia This is a 54-year-old white male patient of Dr. Hallman, who came into the emergency department on 06/06/2021 for evaluation of increasing shortness of breath. She apparently tested positive for COVID-19 9 days ago. His dyspnea has been progressive over the past week. Initially his symptoms were minimal with occasional body aches, then this week his cough developed, and he has been progressively getting more short of breath. He does not have any history of chronic lung disease. He takes no prescription medications, he is a non-smoker, patient has not received COVID-19 vaccine. Patient reports 1 day of fever 3 days ago, and has not had any recurrence since. No nausea vomiting or diarrhea, no abdominal pain. His pulse ox in the emergency department was low at 82% on room air, he is afebrile, slightly tachycardic. His blood pressure is stable at 136/85. Chest x-ray showed multifocal patchy areas of bilateral infiltrates. Lab findings showed white blood cell count of 9.0, hemoglobin of 15.2, platelet count is 232, INR is 1.0, sodium is 141, potassium is 4.2, chloride is 108, CO2 is 27, B1 is 23, creatinine 0.66, lactic acid was 1.3, AST was 110, ALT was 66, LDH was 2094, troponin was less than 0.012, CRP was 15.7. Patient was placed on 8 L of supplemental oxygen, his pulse ox is 88%. He was placed on IV Decadron 6 mg daily, and we were consulted for acute hypoxic rest or a failure related to COVID-19 pneumonia On Today's evaluation on 06/07/2021 patient seen in follow-up on selective care unit. Appears fatigued on today's exam, but does not appear to be in any acute distress. However his oxygen requirements have progressed since yesterday. And patient is currently on 15 L high flow and his pulse ox 88%. He is afebrile, signs are stable, he was started on steroids in the form of Decadron yesterday, prophylactic dose Lovenox 40 mg daily. he was outside of the window for Remdesivir. Chest x-ray showed multifocal patchy areas of bilateral infiltrates on admission, no repeat chest x-ray. Today's labs have been reviewed showing d- dimer 1.49, rest of the labs are pending for today. On 06/08/2021 patient seen in follow-up on selective care unit, he is currently on irritable at 40 L and FiO2 of 60%, with pulse ox of 91-92%. Looks tired, but appears to be in no acute distress, patient is afebrile, he is very dyspneic with any exertion, patient does get up to the bathroom does not want to use bedside urinal. He was instructed to call for help to ambulate. He continues on Bariticinib, today is day 2 of treatment. In addition he is on Decadron 6 mg daily, and his Lovenox is 40 mg twice daily. Today's labs are pending for today, yesterday's d-dimer was 1.49, his LDH was 2094, CRP was 7.3 on yesterday's labs. His LFTs were elevated, an ultrasound of the abdomen was completed showing diffuse fatty infiltration of the liver. On 06/09/2021 patient seen in follow-up on selective care unit, he remains on Airvo, at 40 L, but FiO2 is currently down to 50%, from 55% earlier. His sat on those settings is 89-93%, breathing fairly comfortably, he sitting up in the chair, does not appear to be in any acute distress, remains on a combination of Baricitinib, Decadron, and Lovenox currently at 40 mg twice daily. No new chest x-ray today. Today's labs have been reviewed, d-dimer is currently 2.18, sodium is 135, the rest of electrolytes were unremarkable, BUN is 19, creatinine 0.64. Tolerating oral intake, no abdominal pain, no chest discomfort, still coughing. LDH is improving and is down to 1355, CRP is down to 8.7 temp On 06/10/2021 patient seen in follow-up on selective care unit, he was on Airvo at 40 L and FiO2 of 50%, breathing very comfortably, his pulse ox was ranging between 91-93%. Vital signs have been stable, no fever or chills, blood pressure is been stable, he is up in the chair, no complaints of chest discomfort. At noontime she was switched over to 15 L per high flow nasal cannula and his pulse ox remains at 93%, he is sitting up in a chair, he is eating lunch, he continues on Bariticinib, Lovenox 40 mg twice daily, and Decadron, his chest x-ray showing stable patchy bilateral infiltrates, possibly slightly improved. His labs have been reviewed, d-dimer is 1.41, CRP is 8.4, LDH is pending. On 06/11/2021 patient seen in follow-up on selective care unit, yesterday we transitioned him to regular high flow nasal cannula, today he is down to 13 L, his pulse ox is 94%, his been afebrile overnight, breathing fairly comfortably, does get dyspneic with exertion, however seems to be in no acute distress, he remains on Decadron 6 mg daily, he remains on baritivcinib, and Lovenox 40 mg daily, today's chest x-ray has been reviewed, his d-dimer 0.89, and CRP is 6.5, the rest of labs are pending for today. Afebrile overnight, no specific co mplaints this morning, no chest discomfort, he is awake and alert, no altered mentation. On 06/12/2021 patient seen in follow-up on selective care unit, he continues to come down on the FiO2 requirements, he is currently down to 7 L of oxygen, his pulse ox is 95%, he is sitting up in the recliner, he is breathing comfortably, he is awake and alert, does not appear to be in any type of distress, vital signs are stable, no fever or chills, breathing is nonlabored, his last d-dimer from yesterday was coming down, 0.89, patient continues on Lovenox 40 mg twice daily, and Decadron 6 mg daily, Also on Baricitinib at 4 mg daily. Objective - Vital Signs Vital signs: Vital Signs Temp 98.0 F 06/12/21 12:00 Pulse 92 06/12/21 14:00 Resp 20 06/12/21 14:00 BP 130/78 06/12/21 12:00 Pulse Ox 95 06/12/21 12:00 Intake & Output 06/11/21 06/12/21 06/12/21 18:59 06:59 18:59 Intake Total 420 480 Output Total 1200 Balance -780 480 Weight 123 kg Intake: Oral 420 480 Output: Urine 1200 Other: Voiding Method Toilet Toilet # Voids 1 1 # Bowel Movements 0 - Exam GENERAL EXAM: Alert, 56-year-old white male, currently on 7 L high flow nasal cannula with a pulse ox of 95% comfortable in no apparent distress. HEAD: Normocephalic/atraumatic. EYES: Normal reaction of pupils, equal size. Conjunctiva pink, sclera white. NOSE: Clear with pink turbinates. THROAT: No erythema or exudates. NECK: No masses, no JVD, no thyroid enlargement, no adenopathy. CHEST: No chest wall deformity. Symmetrical expansion. LUNGS: Equal air entry with scattered crackles CVS: Regular rate and rhythm, normal S1 and S2, no gallops, no murmurs, no rubs ABDOMEN: Soft, nontender. No hepatosplenomegaly, normal bowel sounds, no guarding or rigidity. EXTREMITIES: No clubbing, no edema, no cyanosis, 2+ pulses and upper and lower extremities. MUSCULOSKELETAL: Muscle strength and tone normal. SPINE: No scoliosis or deformity SKIN: No rashes CENTRAL NERVOUS SYSTEM: Alert and oriented -3. No focal deficits, tone is normal in all 4 extremities. PSYCHIATRIC: Alert and oriented -3. Appropriate affect. Intact judgment and insight. - Labs CBC & Chem 7: 06/06/21 14:09 06/12/21 07:59 Labs: Abnormal Lab Results - Last 24 Hours (Table) 06/11/21 06/11/21 06/12/21 Range/Units 16:59 20:03 07:59 Carbon Dioxide 31 H (22-30) mmol/L BUN 22 H (9-20) mg/dL Glucose 146 H (74-99) mg/dL POC Glucose (mg/dL) 151 H 125 H (75-99) mg/dL ALT 113 H (4-49) U/L Albumin 3.2 L (3.5-5.0) g/dL Assessment and Plan Plan: Assessment: #1. Acute hypoxic respiratory failure related to acute COVID-19 pneumonia, tested +9 days prior to presentation, patient is outside of the window for Remdesivir treatment. Non-vaccinated for COVID-19. Started on Bariticinib on 06/07/2021 #2. Never smoker #3. Increased d-dimer, inflammatory markers related to viral pneumonia #4. Elevated LFTs, abdominal ultrasound showing fatty infiltration of liver Plan: Patient continues to improve, FiO2 is currently down to 7 L Continue weaning FiO2 He is breathing comfortably, vital signs have been stable Follow-up chest x-ray in the morning Follow-up d-dimer and inflammatory markers If the FiO2 is down to or less than 5 L by tomorrow And if the chest x-ray is improving, we may consider discharge home on home oxygen We will make a decision on anticoagulation based on his repeat d-dimer tomorrow We'll continue to follow I performed a history & physical examination of the patient and discussed their management with my nurse practitioner, Sherry Jimenez. I reviewed the nurse practitioner's note and agree with the documented findings and plan of care. Lung sounds are positive for diffuse crackles throughout the lung smart. The findings and the impression was discussed with the patient. I attest to the documentation by the nurse practitioner. Time with Patient: Less than 30
--- NOTE | 2021-06-12 15:50 | P.PN ---
Progress Note - Text Progress Note Date: 06/12/21 Chief Complaint: Shortness of breath History of presenting complaint: This is a pleasant 56-year-old patient who follows with Dr. Hallman. Normal. Good health. Patient's thyroid of not feeling well about 9 days ago. And tested positive for COVID 19. Patient has not taken his COVID-19 vaccination. Initially symptoms are nonspecific then progressed to develop cough shortness of breath. Patient has been maintained his taste and smell. No diarrhea. Very slight body ache. No headache. Decreasing appetite. Patient became more and more short of breath. Decided to come to the ER. Found of a pulse ox of 82%. Admitted. Admitted with acute COVID 19 pneumonitis, acute hypoxic respiratory failure. Started on IV dexamethasone. June 07: More short of breath. Sitting up in a chair. On high flow cannula and started on Airvo. Eating some. Some cough. Tired. Started on Baricitinib by pulmonary today June 08: Up in a chair. Oral intake fair. On Airvo 60%. Oral intake fair. Tired. Able to hold a conversation.. June 09: Sitting, chair. On Airvo. Oral intake fair. Some cough. Tired. Short of breath at rest. June 10: Sitting up in a chair. Short of breath. Feeling a little bit better. Eating some. Some cough. Had BM. On Airvo 50% June 11: Sitting up in a chair. Oral intake fair. Some shortness of breath. Occasional cough. Using incentive spirometry. Patient changed over to high flow nasal cannula on 13 L. No fever. June 12: Sitting 1 a chair. Oral intake fair. Breathing slightly better. FiO2 down to 8 L. Slight cough. Review of systems: Was done for constitutional, cardiovascular, GI, pulmonary. relevant finding as above Active Medications Acetaminophen (Acetaminophen Tab 325 Mg Tab) 650 mg PO Q6HR PRN PRN Reason: Mild Pain or Fever > 100.5 Ascorbic Acid (Ascorbic Acid 500 Mg Tab) 1,000 mg PO DAILY [facility] Last Admin: 06/12/21 08:55 Dose: 1,000 mg Documented by: Baricitinib (Baricitinib 2 Mg Tablet) 4 mg PO DAILY@1300 [facility] Stop: 06/20/21 13:01 Last Admin: 06/11/21 12:58 Dose: 4 mg Documented by: Cholecalciferol (Cholecalciferol 25 Mcg (1000 Iu) Tablet) 100 mcg PO DAILY [facility] Last Admin: 06/12/21 08:55 Dose: 100 mcg Documented by: Dexamethasone Sodium Phosphate (Dexamethasone Sod Phosphate 10 Mg/Ml 1 Ml Vial) 6 mg IV DAILY [facility] Last Admin: 06/12/21 08:56 Dose: 6 mg Documented by: Enoxaparin Sodium (Enoxaparin 40 Mg/0.4 Ml Syringe) 40 mg SQ DAILY [facility] Ibuprofen (Ibuprofen 400 Mg Tab) 400 mg PO Q6HR PRN PRN Reason: Mild Pain or Fever > 100.5 Insulin Aspart (Insulin Aspart (Novolog) 100 Unit/Ml Vial) 0 unit SQ ACHS [facility]; Protocol Last Admin: 06/12/21 08:56 Dose: Not Given Documented by: Naloxone HCl (Naloxone 0.4 Mg/Ml 1 Ml Vial) 0.2 mg IV Q2M PRN PRN Reason: Opioid Reversal Zinc Sulfate (Zinc Sulfate 220 Mg Cap) 220 mg PO DAILY [facility] Last Admin: 06/12/21 08:55 Dose: 220 mg Documented by: Past medical history to include: Unremarkable Social history: . Works as a [employer]. Does not smoke. Alcohol occasionally. Family history: Myocardial infarction Physical examination: VITAL SIGNS: 98, 92, 20, 1:30/78, 94% on 8 L GENERAL: Sitting up in a chair, short of breath. LUNGS: Respiratory rate increased, decreased breath sounds Cardiovascular: First seconds are normal, no edema PSYCH: [Alert and oriented x3; mood and affect tired. NEUROLOGICAL: Moving all 4 limbs Rest of the exam per pulmonary and nursing INVESTIGATIONS, reviewed in the clinical context: June 12: Potassium 4.3 creatinine 0.78 June 11, d-dimer 0.89 CRP 6.5 June 10: D-dimer 1.41 CRP 8.4 June 09: D-dimer 2.18 creatinine 0.64 CRP 8.7 June 08: D-dimer 0.83, CRP 6.1 Liver ultrasound: Possible fatty infiltration June 07: D-dimer 1.49 CRP 7.3 WBC 9 hemoglobin 15.2 platelets 232 d-dimer 1.12 potassium 4.2 sodium 141 BUN 23 creatinine 0.66 AST 110 ALT 66 LDH 2094 CRP 15.7 Chest x-ray film personally reviewed by me-bilateral infiltrates EKG tracing personally reviewed by me-normal sinus rhythm, nonspecific T-wave changes Assessment and plan: -Acute COVID 19 pneumonitis, in unvaccinated patient: Improving slowly Dexamethasone 6 mg daily, subcu Lovenox, vitamin C vitamin D zinc. Per [facility] policy patient is out of the window for Remdesivir. Baricitinib -Acute hypoxic respiratory failure from COVID 19 pneumonitis.: Slow to respond On high flow nasal cannula 7 L -Obesity BMI 37.15 Weight loss measures -Hyperglycemia secondary to steroids Follow Accu-Cheks -Mildly elevated LFTs. Likely hepatic steatosis. Dexamethasone 6 mg, subcu Lovenox-per pulmonary, high flow nasal cannula,. Baricitinib . discussed with patient. Slowly improving
--- NOTE | 2021-06-12 16:00 | PN ---
PROGRESS NOTE DATE OF SERVICE: 06/12/2021 REASON FOR FOLLOWUP: COVID-19 pneumonia. INTERVAL HISTORY: The patient is afebrile. The patient is breathing more comfortably. The patient is currently down to 7 L cannula. Denies having any chest pain, shortness of breath. Cough has decreased in intensity. No vomiting. No abdominal pain or diarrhea. PHYSICAL EXAMINATION: Blood pressure 130/78, pulse of 90, temperature 98. He is 95% on 7 L nasal cannula. GENERAL DESCRIPTION: General description is a middle-aged male up in the chair in no distress. RESPIRATORY SYSTEM: Unlabored breathing. Decreased intensity of breath sounds. No wheeze. HEART: S1, S2. Regular rate and rhythm. ABDOMEN: Soft. No tenderness. EXTREMITIES: No edema of the feet. LABS: BUN of 22, creatinine 0.78. DIAGNOSTIC IMPRESSION AND PLAN: Patient with acute COVID-19 pneumonia in this patient who seems to have shown overall clinical improvement. Patient to continue with dexamethasone, Lovenox, baricitinib, zinc, ascorbic acid, and monitor his clinical course closely. Continue supportive care. MMODL / IJN: [id number] / MTDD
[2021-06-12 16:22] LABS: Glucose,Whole Blood 132 mg/dL (75-99)
[2021-06-12] MEDS: BARICITINIB 2 MG TABLET PO SCH (16:58)
[2021-06-12 19:55] LABS: Glucose,Whole Blood 190 mg/dL (75-99)
[2021-06-13 06:40] LABS: Basophils % (A) 0 %; Eosinophils # (A) 0.1 k/uL (0-0.7); Eosinophils % (A) 1 %; HCT 43.4 % (39.0-53.0); HGB 14.6 gm/dL (13.0-17.5); Lymphocytes # (A) 1.8 k/uL (1.0-4.8); Lymphocytes % (A) 17 %; MCH 32.5 pg (25.0-35.0); MCHC 33.7 g/dL (31.0-37.0); MCV 96.5 fL (80.0-100.0); Mean Platelet Volume 7.4; Monocytes # (A) 0.5 k/uL (0-1.0); Monocytes % (A) 5 %; Neutrophils # (A) 7.8 k/uL (1.3-7.7); Neutrophils % (A) 75 %; Platelet Count 443 k/uL (150-450); RBC 4.49 m/uL (4.30-5.90); RDW 12.2 % (11.5-15.5); WBC 10.3 k/uL (3.8-10.6)
[2021-06-13 06:42] LABS: Glucose,Whole Blood 83 mg/dL (75-99)
[2021-06-13] MEDS: INSULIN ASPART (NovoLOG) 100 UNIT/ML VIAL SQ SCH ×2 (06:48→12:10)
[2021-06-13 06:50] LABS: African American GFR (CKD) >90 (>60 ml/min/1.73 sqM); Anion Gap 7 mmol/L; Blood Urea Nitrogen 20 mg/dL (9-20); Calcium 9.6 mg/dL (8.4-10.2); Carbon Dioxide 32 mmol/L (22-30); Chloride 99 mmol/L (98-107); Glucose 84 mg/dL (74-99); LDH 769 U/L (313-618); Non-African American GFR(CKD) >90 (>60 ml/min/1.73 sqM); Potassium 4.4 mmol/L (3.5-5.1); Sodium 138 mmol/L (137-145)
[2021-06-13 07:26] LABS: C Reactive Protein 4.1 mg/dL (<1.0)
[2021-06-13] MEDS: ZINC SULFATE 220 MG CAP PO SCH (08:19)
[2021-06-13] MEDS: CHOLECALCIFEROL 25 MCG (1000 IU) TABLET PO SCH (08:19)
[2021-06-13] MEDS: ASCORBIC ACID 500 MG TAB PO SCH (08:19)
[2021-06-13] MEDS: DEXAMETHASONE SOD PHOSPHATE 10 MG/ML 1 ML VIAL IV SCH (08:19)
--- NOTE | 2021-06-13 08:44 | XR ---
EXAMINATION TYPE: XR chest 1V portable DATE OF EXAM: 06/13/2021 COMPARISON: Chest x-ray 06/10/2021 HISTORY: Covid 19 pneumonia TECHNIQUE: Single frontal view of the chest is obtained. FINDINGS: Bilateral airspace disease present predominantly in a peripheral distribution. Cardiac med iastinal silhouette is stable. No evident pneumothorax or pleural effusion. Lung volumes are low. IMPRESSION: Findings consistent with patient's history of pneumonia.
[2021-06-13] MEDS ORDERED: ENOXAPARIN 40 MG/0.4 ML SYRINGE SQ SCH (09:00)
[2021-06-13 09:49] VITALS: RESP 20
[2021-06-13 11:39] LABS: Glucose,Whole Blood 109 mg/dL (75-99)
--- NOTE | 2021-06-13 12:20 | P.PN ---
Subjective Progress Note Date: 06/13/21 Principal diagnosis: COVID-19 pneumonia This is a 54-year-old white male patient of Dr. Hallman, who came into the emergency department on 06/06/2021 for evaluation of increasing shortness of breath. She apparently tested positive for COVID-19 9 days ago. His dyspnea has been progressive over the past week. Initially his symptoms were minimal with occasional body aches, then this week his cough developed, and he has been progressively getting more short of breath. He does not have any history of chronic lung disease. He takes no prescription medications, he is a non-smoker, patient has not received COVID-19 vaccine. Patient reports 1 day of fever 3 days ago, and has not had any recurrence since. No nausea vomiting or diarrhea, no abdominal pain. His pulse ox in the emergency department was low at 82% on room air, he is afebrile, slightly tachycardic. His blood pressure is stable at 136/85. Chest x-ray showed multifocal patchy areas of bilateral infiltrates. Lab findings showed white blood cell count of 9.0, hemoglobin of 15.2, platelet count is 232, INR is 1.0, sodium is 141, potassium is 4.2, chloride is 108, CO2 is 27, B1 is 23, creatinine 0.66, lactic acid was 1.3, AST was 110, ALT was 66, LDH was 2094, troponin was less than 0.012, CRP was 15.7. Patient was placed on 8 L of supplemental oxygen, his pulse ox is 88%. He was placed on IV Decadron 6 mg daily, and we were consulted for acute hypoxic rest or a failure related to COVID-19 pneumonia On Today's evaluation on 06/07/2021 patient seen in follow-up on selective care unit. Appears fatigued on today's exam, but does not appear to be in any acute distress. However his oxygen requirements have progressed since yesterday. And patient is currently on 15 L high flow and his pulse ox 88%. He is afebrile, signs are stable, he was started on steroids in the form of Decadron yesterday, prophylactic dose Lovenox 40 mg daily. he was outside of the window for Remdesivir. Chest x-ray showed multifocal patchy areas of bilateral infiltrates on admission, no repeat chest x-ray. Today's labs have been reviewed showing d- dimer 1.49, rest of the labs are pending for today. On 06/08/2021 patient seen in follow-up on selective care unit, he is currently on irritable at 40 L and FiO2 of 60%, with pulse ox of 91-92%. Looks tired, but appears to be in no acute distress, patient is afebrile, he is very dyspneic with any exertion, patient does get up to the bathroom does not want to use bedside urinal. He was instructed to call for help to ambulate. He continues on Bariticinib, today is day 2 of treatment. In addition he is on Decadron 6 mg daily, and his Lovenox is 40 mg twice daily. Today's labs are pending for today, yesterday's d-dimer was 1.49, his LDH was 4, CRP was 7.3 on yesterday's labs. His LFTs were elevated, an ultrasound of the abdomen was completed showing diffuse fatty infiltration of the liver. On 06/09/2021 patient seen in follow-up on selective care unit, he remains on Airvo, at 40 L, but FiO2 is currently down to 50%, from 55% earlier. His sat on those settings is 89-93%, breathing fairly comfortably, he sitting up in the chair, does not appear to be in any acute distress, remains on a combination of Baricitinib, Decadron, and Lovenox currently at 40 mg twice daily. No new chest x-ray today. Today's labs have been reviewed, d-dimer is currently 2.18, sodium is 135, the rest of electrolytes were unremarkable, BUN is 19, creatinine 0.64. Tolerating oral intake, no abdominal pain, no chest discomfort, still coughing. LDH is improving and is down to 1355, CRP is down to 8.7 temp On 06/10/2021 patient seen in follow-up on selective care unit, he was on Airvo at 40 L and FiO2 of 50%, breathing very comfortably, his pulse ox was ranging between 91-93%. Vital signs have been stable, no fever or chills, blood pressure is been stable, he is up in the chair, no complaints of chest discomfort. At noontime she was switched over to 15 L per high flow nasal cannula and his pulse ox remains at 93%, he is sitting up in a chair, he is eating lunch, he continues on Bariticinib, Lovenox 40 mg twice daily, and Decadron, his chest x-ray showing stable patchy bilateral infiltrates, possibly slightly improved. His labs have been reviewed, d-dimer is 1.41, CRP is 8.4, LDH is pending. On 06/11/2021 patient seen in follow-up on selective care unit, yesterday we transitioned him to regular high flow nasal cannula, today he is down to 13 L, his pulse ox is 94%, his been afebrile overnight, breathing fairly comfortably, does get dyspneic with exertion, however seems to be in no acute distress, he remains on Decadron 6 mg daily, he remains on baritivcinib, and Lovenox 40 mg daily, today's chest x-ray has been reviewed, his d-dimer 0.89, and CRP is 6.5, the rest of labs are pending for today. Afebrile overnight, no specific co mplaints this morning, no chest discomfort, he is awake and alert, no altered mentation. On 06/12/2021 patient seen in follow-up on selective care unit, he continues to come down on the FiO2 requirements, he is currently down to 7 L of oxygen, his pulse ox is 95%, he is sitting up in the recliner, he is breathing comfortably, he is awake and alert, does not appear to be in any type of distress, vital signs are stable, no fever or chills, breathing is nonlabored, his last d-dimer from yesterday was coming down, 0.89, patient continues on Lovenox 40 mg twice daily, and Decadron 6 mg daily, Also on Baricitinib at 4 mg daily. The patient is seen today 06/13/2021 in follow-up on the selective care unit. He is currently sitting up in a chair at the bedside. Awake and alert in no acute distress. He is on 4 L nasal cannula to maintain O2 saturation in the 90s. He has a dry nonproductive cough. No fever or chills. Chest x-ray continues to show some bilateral airspace disease. The patient is feeling quite a bit better. He is hoping to go home. Count 10.3. Hemoglobin 14.6. D-dimer 0.64. Sodium 138. Potassium 4.4. LDH 769. C-reactive protein 4.1. Glucose 109. He is continued on Baricitinib, Decadron, Lovenox, vitamin supplements. Objective - Vital Signs Vital signs: Vital Signs Temp 98.3 F 06/13/21 11:52 Pulse 84 06/13/21 11:52 Resp 20 06/13/21 11:52 BP 114/73 06/13/21 11:52 Pulse Ox 95 06/13/21 11:52 Intake & Output 06/12/21 06/13/21 06/13/21 18:59 06:59 18:59 Intake Total 720 Balance 720 Weight 122.4 kg Intake: Oral 720 Other: Voiding Method Toilet Toilet # Voids 2 2 - Exam GENERAL EXAM: Alert, very pleasant 56-year-old gentleman, up in a chair, on 4 L nasal cannula, comfortable in no apparent distress. HEAD: Normocephalic. EYES: Normal reaction of pupils, equal size. NOSE: Clear with pink turbinates. THROAT: No erythema or exudates. NECK: No masses, no JVD. CHEST: No chest wall deformity. LUNGS: Equal air entry with bibasilar crackles. CVS: S1 and S2 normal with no audible murmur, regular rhythm. ABDOMEN: No hepatosplenomegaly, normal bowel sounds, no guarding or rigidity. SPINE: No scoliosis or deformity SKIN: No rashes CENTRAL NERVOUS SYSTEM: No focal deficits, tone is normal in all 4 extremities. EXTREMITIES: There is no peripheral edema. No clubbing, no cyanosis. Periphera l pulses are intact. - Labs CBC & Chem 7: 06/13/21 06:17 06/13/21 06:17 Labs: Abnormal Lab Results - Last 24 Hours (Table) 06/12/21 06/12/21 06/13/21 Range/Units 16:21 19:48 06:17 Neutrophils # (1.3-7.7) k/uL D-Dimer 0.64 H (<0.60) mg/L FEU Carbon Dioxide (22-30) mmol/L POC Glucose (mg/dL) 132 H 190 H (75-99) mg/dL Lactate Dehydrogenase (313-618) U/L C-Reactive Protein (<1.0) mg/dL 06/13/21 06/13/21 06/13/21 Range/Units 06:17 06:17 11:37 Neutrophils # 7.8 H (1.3-7.7) k/uL D-Dimer (<0.60) mg/L FEU Carbon Dioxide 32 H (22-30) mmol/L POC Glucose (mg/dL) 109 H (75-99) mg/dL Lactate Dehydrogenase 769 H (313-618) U/L C-Reactive Protein 4.1 H (<1.0) mg/dL Assessment and Plan Assessment: 1 Acute hypoxic respiratory failure related to acute COVID-19 pneumonia, tested +9 days prior to presentation, patient is outside of the window for Remdesivir treatment. Non-vaccinated for COVID-19. Started on Bariticinib on 06/07/2021 2 Never smoker 3 Increased d-dimer, inflammatory markers related to viral pneumonia 4 Elevated LFTs, abdominal ultrasound showing fatty infiltration of liver Plan: The patient was seen and evaluated by Dr. Gomes Chest x-ray and labs reviewed Cleared for discharge from the pulmonary standpoint Set up for home oxygen Stop Baricitinib Continue by mouth Decadron 6 mg daily for 10 more days Follow up in the office in 3-4 weeks I, the cosigning physician, performed a history & physical examination of the patient. Lungs sounds with crackles in the posterior bases. Maintaining good O2 saturations in the 90s on 4 L/m per nasal cannula. I discussed the assessment and plan of care with my nurse practitioner, Rhoda Rios. I attest to the above note as dictated by her.
[2021-06-13 15:30] VITALS: BMI 33.7
[2021-06-13 16:34] VITALS: BP 122/77; PULSE 82; TEMP 97.7
[2021-06-13] MEDS: BARICITINIB 2 MG TABLET PO SCH (16:48)
--- NOTE | 2021-06-13 19:34 | P.DS ---
Providers Date of admission: 06/06/21 14:22 Expected date of discharge: 06/13/21 Attending physician: Yanick Francis Consults: 06/06/21 14:37 Consult Physician Urgent Consulting Provider: Jesus Raines Consult Reason/Comments: covid Pneumonia, hypoxia Do you want consulting provider notified?: Yes Consult Physician Urgent Consulting Provider: Javier Domínguez Consult Reason/Comments: covid pneumonia, hypoxia Do you want consulting provider notified?: Yes Primary care physician: Ej Hallman [facility] Course: Chief Complaint: Shortness of breath History of presenting complaint: This is a pleasant 56-year-old patient who follows with Dr. Hallman. Normal. Good health. Patient's thyroid of not feeling well about 9 days ago. And teste d positive for COVID 19. Patient has not taken his COVID-19 vaccination. Initially symptoms are nonspecific then progressed to develop cough shortness of breath. Patient has been maintained his taste and smell. No diarrhea. Very slight body ache. No headache. Decreasing appetite. Patient became more and more short of breath. Decided to come to the ER. Found of a pulse ox of 82%. Admitted. Admitted with acute COVID 19 pneumonitis, acute hypoxic respiratory failure. Started on IV dexamethasone. June 07: More short of breath. Sitting up in a chair. On high flow cannula and started on Airvo. Eating some. Some cough. Tired. Started on Baricitinib by pulmonary today June 08: Up in a chair. Oral intake fair. On Airvo 60%. Oral intake fair. Tired. Able to hold a conversation.. June 09: Sitting, chair. On Airvo. Oral intake fair. Some cough. Tired. Short of breath at rest. June 10: Sitting up in a chair. Short of breath. Feeling a little bit bet ter. Eating some. Some cough. Had BM. On Airvo 50% June 11: Sitting up in a chair. Oral intake fair. Some shortness of breath. Occasional cough. Using incentive spirometry. Patient changed over to high flow nasal cannula on 13 L. No fever. June 12: Sitting 1 a chair. Oral intake fair. Breathing slightly better. FiO2 down to 8 L. Slight cough. June 13: Sitting up in a chair. Feeling better. Keen to go home. Down to 4 L of nasal cannula. Eating much better. Patient's cleared by Dr. Gomes to be discharged. Consultation: Dr. Gomes from pulmonary Dr. Domínguez from ID Past medical history to include: Unremarkable Social history: . 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 Does not smoke. Alcohol occasionally. Family history: Myocardial infarction Physical examination: VITAL SIGNS: 97.7, CT 2, 20, 122.77, 96% on 4 L GENERAL: Sitting up in a chair, breathing better LUNGS: Respiratory rate increased, Cardiovascular: First seconds are normal, no edema PSYCH: [Alert and oriented x3; mood and affect tired. NEUROLOGICAL: Moving all 4 limbs Rest of the exam per pulmonary and nursing INVESTIGATIONS, reviewed in the clinical context: June 13: White count 10.3 hemoglobin 14.6 d-dimer 0.64 CRP 4.1 Liver ultrasound: Possible fatty infiltration June 07: D-dimer 1.49 CRP 7.3 WBC 9 hemoglobin 15.2 platelets 232 d-dimer 1.12 potassium 4.2 sodium 141 BUN 23 creatinine 0.66 AST 110 ALT 66 LDH 2094 CRP 15.7 Chest x-ray film personally reviewed by me-bilateral infiltrates EKG tracing personally reviewed by me-normal sinus rhythm, nonspecific T-wave changes Assessment and plan: -Acute COVID 19 pneumonitis, in unvaccinated patient: Dexamethasone 6 mg daily, subcu Lovenox, vitamin C vitamin D zinc. Per [facility] policy patient is out of the window for Remdesivir. Baricitinib. DC home on dexamethasone as per pulmonary. Also xarelto 2.5 twice a day because of pro- thrombogenic state. -Acute hypoxic respiratory failure from COVID 19 pneumonitis.: Improving Down to 4 L of nasal cannula. -Obesity BMI 37.15 Weight loss measures -Hyperglycemia secondary to steroids Follow Accu-Cheks -Mildly elevated LFTs. Likely hepatic steatosis. Disposition: Home Post COVID-19 DC instructions Plan - Discharge Summary New Discharge Prescriptions: New Zinc Sulfate [Orazinc] 220 mg PO DAILY #30 cap Cholecalciferol [Vitamin D3 (25 Mcg = 1000 Iu)] 100 mcg PO DAILY #100 tablet Rivaroxaban [Xarelto] 2.5 mg PO BID #28 tablet Dexamethasone [Decadron] 6 mg PO DAILY 7 Days #7 tablet Ascorbic Acid [Vitamin C] 1,000 mg PO DAILY #30 tab Continue Albuterol Inhaler [Ventolin Hfa Inhaler] 2 puff INHALATION RT-QID PRN PRN Reason: Shortness Of Breath Discontinued Albuterol Nebulized [Ventolin Nebulized] 2.5 mg INHALATION RT-TID PRN PRN Reason: Shortness Of Breath predniSONE See Taper PO DAILY Azithromycin [Zithromax Z-pack (6 tabs)] See Taper PO DAILY Discharge Medication List Albuterol Inhaler [Ventolin Hfa Inhaler] 2 puff INHALATION RT-QID PRN 06/06/21 [History] Ascorbic Acid [Vitamin C] 1,000 mg PO DAILY #30 tab 06/13/21 [Rx] Cholecalciferol [Vitamin D3 (25 Mcg = 1000 Iu)] 100 mcg PO DAILY #100 tablet 06/13/21 [Rx] Dexamethasone [Decadron] 6 mg PO DAILY 7 Days #7 tablet 06/13/21 [Rx] Rivaroxaban [Xarelto] 2.5 mg PO BID #28 tablet 06/13/21 [Rx] Zinc Sulfate [Orazinc] 220 mg PO DAILY #30 cap 06/13/21 [Rx] Follow up Appointment(s)/Referral(s): Marcy Gomes MD [STAFF PHYSICIAN] - 3 Weeks (PLEASE CALL OFFICE WHEN OPEN TO MAKE FOLLOW UP APPOINTMENT) Ej Hallman DO [Primary Care Provider] - 06/14/21 1:00 pm (WILL BE A [facility] APPOINTMENT. OFFICE WILL CALL SOMETIME BETWEEN 1PM-4PM) [facility] [NON-STAFF] - Patient Instructions/Handouts: Coronavirus Disease 2019 (COVID-19) Discharge Disposition: HOME SELF-CARE
--- NOTE | 2021-06-13 20:34 | P.PN ---
Progress Note - Text Progress Note Date: 06/13/21 REASON FOR FOLLOWUP: COVID-19 pneumonia. INTERVAL HISTORY: The patient remains to be afebrile. The patient is breathing comfortably. The patient is currently down to 7 L cannula. Denies having any chest pain, shortness of breath. Cough has decreased in intensity. No vomiting. No abdominal pain or diarrhea. PHYSICAL EXAMINATION: Blood pressure 130/70, pulse of 80, temperature 98. He is 95% on 7 L nasal cannula. GENERAL DESCRIPTION: General description is a middle-aged male up in the chair in no distress. RESPIRATORY SYSTEM: Unlabored breathing. Decreased intensity of breath sounds. No wheeze. HEART: S1, S2. Regular rate and rhythm. ABDOMEN: Soft. No tenderness. EXTREMITIES: No edema of the feet. LABS: reviewed DIAGNOSTIC IMPRESSION AND PLAN: Patient with acute COVID-19 pneumonia, patient have shown overall clinical improvement. Patient to continue with dexamethasone, Lovenox, baricitinib, zinc, ascorbic acid which will be continued and monitor his clinical course closely.
--- NOTE | 2021-06-17 08:42 | CDI ---
Documentation Clarification Form Date: 06/17/2021 08:34:28 AM From: Dameon Morris Admit Date: 06/06/2021 02:22:00 PM Patient Name: Doyle Art Visit Number: [id number] Discharge Date: 06/13/2021 06:17:00 PM ATTENTION: The Clinical Documentation Specialists (CDI) and [facility] Coding Staff appreciate your assistance in clarifying documentation. Please respond to the clarification below the line at the bottom and electronically sign. The CDI & [facility] Coding staff will review the response and follow-up if needed. Please note: Queries are made part of the Legal Health Record. If you have any questions, please contact the author of this message via ITS. Dr. Yanick Francis The patient presented with the following clinical indicators. Additional clarification regarding the etiology/cause of the clinical indicators is requested. History/Risk Factors: COVID PNA, tachycardia Clinical Indicators: WBC: 9.0 Lactic acid: WNL Blood cultures: N/A Vitals signs: ED: BP 136/85, resp 24, pulse 112 Treatment: dexamethasone, baricitnib ID Consult: COVID Antibiotics: Azithromycin IV Bolus: In your professional opinion, please clarify if these findings signify one of the following conditions: [ ] Sepsis POA [ ] Sepsis, Not POA [ ] Sepsis ruled out [ ] Severe Sepsis with organ failure [ ] Septic Shock [ ] SIRS, without underlying infectious process [ ] Other, please specify [ ] Unable to determine [ ] COVID only. No SIRS or sepsis SIRS Criteria: 2 or more of the following may indicate SIRS -Temperature < 96.8F (36C) or > 101.0F (38.3C) -Heart Rate > 90 bpm -Respiratory Rate > 20 breaths/min or PaCO2 < 32 mmHg -White Blood Cell Count > 12,000 or < 4,000 cells/mm3 or > 10% bands Sepsis ruled out (Template Last Reviewed: October 2020) MTDD
== END 2021-06-13 18:17 | disposition home or self-care (01) | DRG 177 ==
LOC: EC 11:48 → 3SCARD 14:22
PROVIDERS: ADMIT Hospitalist; ATTEND Hospitalist
PROC: 3E0333Z Introduction of Anti-inflammatory into Peripheral Vein, Percutaneous Approach (ICD-10-PCS; principal; 2021-06-06)
PROC: 5A0955A Assistance with Respiratory Ventilation, Greater than 96 Consecutive Hours, High Flow/Velocity Cannula (ICD-10-PCS; 2021-06-06)
PROC: XW0DXM6 Introduction of Baricitinib into Mouth and Pharynx, External Approach, New Technology Group 6 (ICD-10-PCS; 2021-06-06)
DX: U07.1 COVID-19 (principal); J12.82 Pneumonia due to coronavirus disease 2019; J96.01 Acute respiratory failure with hypoxia; D72.810 Lymphocytopenia; E66.9 Obesity, unspecified; K76.0 Fatty (change of) liver, not elsewhere classified; Z68.37 Body mass index [BMI] 37.0-37.9, adult; T38.0X5A Adverse effect of glucocorticoids and synthetic analogues, initial encounter; R73.9 Hyperglycemia, unspecified; Z82.49 Family history of ischemic heart disease and other diseases of the circulatory system; Z85.828 Personal history of other malignant neoplasm of skin; R00.0 Tachycardia, unspecified
CPT/HCPCS: 36415; 71045; 76705; 80048; 80053; 82728; 83605; 83615; 83735; 83880; 84145; 84484; 85025; 85379; 85610; 85730; 86140; 93005; 94760; 96372; 96374; 99291

== ENCOUNTER 2024-07-29 11:47 | Emergency (ER) | payer BC ==
[2024-07-29 11:55] VITALS: RESP 18; TEMP 97.9
--- NOTE | 2024-07-29 12:52 | ED ---
General Adult HPI - General Chief complaint: Wound/Laceration Stated complaint: L hand lac Time Seen by Provider: 07/29/24 12:17 Source: patient, RN notes reviewed Mode of arrival: ambulatory Limitations: no limitations - History of Present Illness Initial comments: 59-year-old male presents to the emergency department for evaluation of left thumb laceration. Patient states that his finger was cut with a saw blade. He is unsure of when he last had a tetanus vaccine. He reports normal range of motion and sensation to the distal thumb. - Related Data Home Medications Medication Instructions Recorded Confirmed Albuterol Inhaler [Ventolin Hfa 2 puff INHALATION RT-QID PRN 06/06/21 06/06/21 Inhaler] Previous Rx's Medication Instructions Recorded Ascorbic Acid [Vitamin C] 1,000 mg PO DAILY #30 tab 06/13/21 Cholecalciferol [Vitamin D3 (25 100 mcg PO DAILY #100 tablet 06/13/21 Mcg = 1000 Iu)] Rivaroxaban [Xarelto] 2.5 mg PO BID #28 tablet 06/13/21 Zinc Sulfate [Orazinc] 220 mg PO DAILY #30 cap 06/13/21 dexAMETHasone [Decadron] 6 mg PO DAILY 7 Days #7 tablet 06/13/21 Allergies Allergy/AdvReac Type Severity Reaction Status Date / Time No Known Allergies Allergy Verified 06/06/21 15:09 Review of Systems ROS Statement: Those systems with pertinent positive or pertinent negative responses have been documented in the HPI. ROS Other: All systems not noted in ROS Statement are negative. Past Medical History Past Medical History: Cancer Additional Past Medical History / Comment(s): Covid 05/28 History of Any Multi-Drug Resistant Organisms: None Reported Past Surgical History: No Surgical Hx Reported Additional Past Surgical History / Comment(s): Skin Cancer Past Anesthesia/Blood Transfusion Reactions: No Reported Reaction Past Psychological History: No Psychological Hx Reported Smoking Status: Never smoker Past Alcohol Use History: Occasional Past Drug Use History: None Reported - Past Family History Father History Unknown: Yes Family Medical History: Myocardial Infarction (ME) General Exam Limitations: no limitations General appearance: alert, in no apparent distress Head exam: Present: atraumatic, normocephalic, normal inspection Extremities exam: Present: full ROM, normal capillary refill, other (Skin avulsion laceration to the left thumb ). Absent: tenderness, pedal edema, joint swelling, calf tenderness Neurological exam: Present: alert, oriented X3 Psychiatric exam: Present: normal affect, normal mood Skin exam: Present: warm, dry, normal color, other (Laceration and avulsion injury to the left distal anterior thumb). Absent: intact, rash Course Vital Signs 07/29/24 07/29/24 11:52 14:05 Temperature 97.9 F Pulse Rate 77 66 Respiratory 18 18 Rate Blood Pressure 141/83 150/84 O2 Sat by Pulse 95 95 Oximetry Procedures - Laceration Laceration #1 Consent Obtained: verbal consent Indication: laceration Site: hand Size (cm): 1 Description: linear, avulsion Depth: simple, single layer Anesthetic Used: lidocaine 1% Anesthesia Technique: nerve block Type of Sutures: other Size of Sutures: 5-0 Number of Sutures: 4 Technique: simple, interrupted Patient Tolerated Procedure: well, no complications Medical Decision Making - Medical Decision Making Was pt. sent in by a medical professional or institution (, PA, [employer], urgent care, hospital, or prison...) When possible be specific @ -No Did you speak to anyone other than the patient for history (EMS, parent, family, police, friend...)? What history was obtained from this source @ -No Did you review nursing and triage notes (agree or disagree)? Why? @ -I reviewed and agree with nursing and triage notes Were old charts reviewed (outside hosp., previous admission, EMS record, old EKG, old radiological studies, urgent care reports/EKG's, prison records)? Report findings @ -No old charts were reviewed Differential Diagnosis (chest pain, altered mental status, abdominal pain women, abdominal pain men, vaginal bleeding, weakness, fever, dyspnea, syncope, headache, dizziness, GI bleed, back pain, seizure, CVA, palpatations, mental health, musculoskeletal)? @ -Differential Musculoskeletal Muscular strain, contusion, ligament sprain, fracture, arthritis, septic arthritis, bursitis, cellulitis, muscle spasm, nerve compression, DVT, arterial occlusion, herpes zoster, electrolyte abnormality, tumor.... This is not meant to be in all inclusive list EKG interpreted by me (3pts min.). @ -None X-rays interpreted by me (1pt min.). @ -X-ray of the left thumb shows no osseous abnormality CT interpreted by me (1pt min.). @ -None done U/S interpreted by me (1pt. min.). @ -None done What testing was considered but not performed or refused? (CT, X-rays, U/S, labs)? Why? @ -None What meds were considered but not given or refused? Why? @ -None Did you discuss the management of the patient with other professionals (professionals i.e. DrTangela, PA, [employer], lab, RT, psych nurse, social sciences professor, global program manager, teacher, court officer, assistant case manager)? Give summary @ -No Was smoking cessation discussed for >3mins.? @ -No Was critical care preformed (if so, how long)? @ -No Were there social determinants of health that impacted care today? How? (Homelessness, low income, unemployed, alcoholism, drug addiction, transportation, low edu. Level, literacy, decrease access to med. care, long-term, rehab)? @ -No Was there de-escalation of care discussed even if they declined (Discuss DNR or withdrawal of care, Hospice)? DNR status @ -No What co-morbidities impacted this encounter? (DM, HTN, Smoking, COPD, CAD, Cancer, CVA, ARF, Chemo, Hep., AIDS, mental health diagnosis, sleep apnea, morbid obesity)? @ -None Was patient admitted / discharged? Hospital course, mention meds given and route, prescriptions, significant lab abnormalities, going to OR and other pertinent info. @ -Discharge. Patient presented to the emergency department for evaluation of left thumb injury from cutting his finger on a table saw. Patient has a laceration and an avulsion injury to the skin of the left thumb. Patient underwent x-rays revealing no acute osseous abnormality, soft tissue injury visible. Laceration was irrigated and repaired. Gelfoam was placed on the avulsion area of the wound. Patient was updated on her tetanus vaccination. Advised on wound care and suture removal time. Patient is understanding agreeable plan. Patient stable at time of discharge. Case discussed with Dr. Burrows Undiagnosed new problem with uncertain prognosis? @ -No Drug Therapy requiring intensive monitoring for toxicity (Heparin, Nitro, Insulin, Cardizem)? @ -No Were any procedures done? @ -No Diagnosis/symptom? @ -Laceration Acute, or Chronic, or Acute on Chronic? @ -acute Uncomplicated (without systemic symptoms) or Complicated (systemic symptoms)? @ -uncomplicated Side effects of treatment? @ -No Exacerbation, Progression, or Severe Exacerbation? @ -No Poses a threat to life or bodily function? How? (Chest pain, [place], ME, pneumonia, PE, COPD, DKA, ARF, appy, cholecystitis, CVA, Diverticulitis, Homicidal, Suicidal, threat to staff... and all critical care pts) @ -No Disposition Clinical Impression: Laceration Disposition: HOME SELF-CARE Condition: Stable Instructions (If sedation given, give patient instructions): Care For Your Stitches (ED) Additional Instructions: Please have stitches removed in 7-10 days. Return to the emergency department for new or worsening symptoms. Is patient prescribed a controlled substance at d/c from ED?: No Referrals: Ej Hallman DO [Primary Care Provider] - 1-2 days
[2024-07-29] MEDS: DIPH,PERTUS(ACELL)TETVAC-LF 0.5 ML VIAL IM ONE (12:53)
[2024-07-29] MEDS: LIDOCAINE 1% INJ 10MG/ML (20 ML MDV) SQ ONE (12:53)
--- NOTE | 2024-07-29 13:45 | XR ---
EXAMINATION TYPE: XR finger LT DATE OF EXAM: 07/29/2024 1:14 PM COMPARISON: None CLINICAL INDICATION: Male, 59 years old with history of saw injury; pain TECHNIQUE: XR finger LT Frontal, lateral and oblique views were obtained. FINDINGS: Normal alignment of the visualized joints. No acute osseous pathology is identified. No e vidence of soft tissue swelling. No significant degeneration, no radiopaque foreign body. Soft tissue laceration of the thumb for aspect. IMPRESSION: 1. Soft tissue laceration without acute osseous pathology. No radiopaque foreign body. [facility], , 07/29/2024 1:43 PM
[2024-07-29 14:07] VITALS: BP 150/84; PULSE 66
== END 2024-07-29 14:05 | disposition home or self-care (01) ==
LOC: EC 11:47
DX: S61.012A Laceration without foreign body of left thumb without damage to nail, initial encounter (principal); Z86.16 Personal history of COVID-19; Z23 Encounter for immunization; W45.8XXA Other foreign body or object entering through skin, initial encounter
CPT/HCPCS: 73140; 90715; 99283; 12001; 90471; J2003